=== PATIENT | female | born 1945 | race Caucasian/White ===

== ENCOUNTER → 2017-03-27 | Outpatient (CLI) | payer OTHER ==
--- NOTE | 2017-03-27 14:31 | RAD ---
Examination: Chest, PA and lateral views History: SOB Findings: Normal heart size and clear upper lungs. Minimal increase in linear density noted in the ba se these with blunting of the right costophrenic angle. Impression: Small right pleural effusion. Minimal basal atelectasis may be present. No evidence for p ulmonary edema or consolidation. Reported By:
== END ==
LOC: RAD 13:09
PROVIDERS: ATTEND Nurse Practitioner Family
DX: R06.02 Shortness of breath (principal); J90 Pleural effusion, not elsewhere classified
CPT/HCPCS: 71046

== ENCOUNTER → 2017-08-04 | Outpatient (CLI) | payer OTHER ==
[2017-08-04 09:03] LABS: BASOPHILS % (AUTO) 0.8 % (0.2-1.0); EOSINOPHILS # (AUTO) 0.1 x10^3/uL (0.0-0.2); EOSINOPHILS % (AUTO) 2.3 % (0.9-2.9); HEMATOCRIT 36.2 % (36.0-47.0); HEMOGLOBIN 12.2 g/dL (12.0-16.0); LYMPHOCYTES # (AUTO) 1.8 X10^3/uL (1.3-2.9); LYMPHOCYTES % (AUTO) 38.9 % (21.0-51.0); MEAN CORPUSCULAR HEMOGLOBIN 27.3 pg (27.0-34.0); MEAN CORPUSCULAR HGB CONC 33.8 g/dL (33.0-35.0); MEAN CORPUSCULAR VOLUME 80.8 fL (80.0-100.0); MEAN PLATELET VOLUME 8.7 fL (7.4-11.0); MONOCYTES # (AUTO) 0.3 x10^3/uL (0.3-0.8); MONOCYTES % (AUTO) 7.5 % (0.0-13.0); NEUTROPHILS # (AUTO) 2.3 x10^3/uL (2.2-4.8); NEUTROPHILS % (AUTO) 50.5 % (42.0-75.0); PLATELET COUNT 219 X10^3/uL (150.0-450.0); RED BLOOD COUNT 4.48 X10^6/uL (3.5-5.4); RED CELL DISTRIBUTION WIDTH 14.8 % (11.6-16.5); WHITE BLOOD COUNT 4.6 X10^3/uL (3.6-10.0)
[2017-08-04 09:28] LABS: ALANINE AMINOTRANSFERASE 17 Units/L (12-78); ALBUMIN 3.5 g/dL (3.4-5.0); ALKALINE PHOSPHATASE 63 Units/L (46-116); ASPARTATE AMINO TRANSFERASE 17 Units/L (15-37); BLOOD UREA NITROGEN 27 mg/dL (7-18); CALCIUM 7.9 mg/dL (8.5-10.1); CARBON DIOXIDE 26.4 mmol/L (21-32); CHLORIDE 103 mmol/L (98-107); CHOL/HDL RATIO 3.1 (0.0-5.0); CHOLESTEROL 261 mg/dL (0-200); FREE T4 (FREE THYROXINE) 1.51 ng/dL (0.76-1.46); HDL CHOLESTEROL 84 mg/dL (40-60); SODIUM 137 mmol/L (136-145); TOTAL PROTEIN 6.9 g/dL (6.4-8.2); TRIGLYCERIDES 66 mg/dL (0-150); TSH (3RD GENERATION) 0.246 uIU/mL (0.358-3.74); eGFR BLACK RACES > 60 (>60); eGFR NON BLACK RACES 52 (>60)
[2017-08-04 09:53] LABS: IRON 161 ug/dL (50-175); TOTAL IRON BINDING CAPACITY 364 ug/dL (250-450)
== END ==
LOC: LAB 08:18
PROVIDERS: ATTEND Nurse Practitioner Family
DX: E03.8 Other specified hypothyroidism (principal); E78.4 Other hyperlipidemia; E61.1 Iron deficiency; E56.8 Deficiency of other vitamins; I10 Essential (primary) hypertension; E55.9 Vitamin D deficiency, unspecified
CPT/HCPCS: 36415; 80053; 80061; 82306; 82728; 83540; 83550; 84439; 84443; 84481; 85025

== ENCOUNTER 2018-10-11 10:55 | Inpatient (IN) ==
[2018-10-11] MEDS ORDERED: BENADRYL INJ 50 MG VIAL IVP ONE (13:45)
[2018-10-11] MEDS ORDERED: COREG TAB 6.25 MG PO ONE (22:00)
[2018-10-11] MEDS ORDERED: VISTARIL PO ONE (22:00)
[2018-10-11 22:27] VITALS: BP 156/68
[2018-10-12] MEDS ORDERED: BENADRYL INJ 50 MG VIAL IVP PRN (05:55)
[2018-10-12] MEDS ORDERED: SYNTHROID 112 mcg TAB ONE (06:00)
[2018-10-12] MEDS ORDERED: NS 1000 ML 1,000 ML IV SCH (06:00)
[2018-10-12 06:11] LABS: BASOPHILS % (AUTO) 0.9 % (0.2-1.0); EOSINOPHILS # (AUTO) 0.1 x10^3/uL (0.0-0.2); EOSINOPHILS % (AUTO) 1.8 % (0.9-2.9); HEMATOCRIT 26.5 % (36.0-47.0); HEMOGLOBIN 9.1 g/dL (12.0-16.0); LYMPHOCYTES # (AUTO) 1.4 X10^3/uL (1.3-2.9); LYMPHOCYTES % (AUTO) 33.3 % (21.0-51.0); MEAN CORPUSCULAR HEMOGLOBIN 30.6 pg (27.0-34.0); MEAN CORPUSCULAR HGB CONC 34.3 g/dL (33.0-35.0); MEAN CORPUSCULAR VOLUME 89.2 fL (80.0-100.0); MEAN PLATELET VOLUME 7.6 fL (7.4-11.0); MONOCYTES # (AUTO) 0.3 x10^3/uL (0.3-0.8); MONOCYTES % (AUTO) 7.5 % (0.0-13.0); NEUTROPHILS # (AUTO) 2.3 x10^3/uL (2.2-4.8); NEUTROPHILS % (AUTO) 56.5 % (42.0-75.0); PLATELET COUNT 244 X10^3/uL (150.0-450.0); RED BLOOD COUNT 2.97 X10^6/uL (3.5-5.4); WHITE BLOOD COUNT 4.1 X10^3/uL (3.6-10.0)
[2018-10-12 06:17] LABS: ALANINE AMINOTRANSFERASE 13 Units/L (12-78); ALKALINE PHOSPHATASE 53 Units/L (46-116); ASPARTATE AMINO TRANSFERASE 18 Units/L (15-37); BLOOD UREA NITROGEN 31 mg/dL (7-18); CALCIUM 7.6 mg/dL (8.5-10.1); CARBON DIOXIDE 26.4 mmol/L (21-32); CHLORIDE 108 mmol/L (98-107); COR CA(FOR HYPOALB) 8.4 mg/dL (8.5-10.1); CREATININE 2.11 mg/dL (0.55-1.02); SODIUM 140 mmol/L (136-145); TOTAL PROTEIN 5.7 g/dL (6.4-8.2); eGFR NON BLACK RACES 24 (>60)
[2018-10-12] MEDS ORDERED: SYNTHROID 112 mcg TAB PO SCH (07:00)
[2018-10-12] MEDS ORDERED: VISTARIL PO PRN (07:32)
[2018-10-12] MEDS ORDERED: CORDARONE TAB 200 MG ONE (09:00)
[2018-10-12] MEDS ORDERED: COREG TAB 6.25 MG ONE (09:00)
[2018-10-12] MEDS ORDERED: COREG TAB 6.25 MG PO SCH (09:00)
[2018-10-12] MEDS ORDERED: CORDARONE TAB 200 MG PO SCH (09:00)
[2018-10-12] MEDS ORDERED: NS 100 ML IV 100 ML with VENOFER 200 MG IV NR ×2 (11:00)
[2018-10-12] MEDS ORDERED: VENOFER IV ONE (11:30)
== END 2018-10-12 12:30 | disposition home or self-care (01) | DRG 812 ==
LOC: MED/SURG 10:55 → OBS 10:56 → MED/SURG 10:57 → UNDODISIN 10-12 12:30 → OBS 10-16 09:12
PROVIDERS: ADMIT Obstetrics & Gynecology Obstetrics; ATTEND Obstetrics & Gynecology Obstetrics
DX: R53.83 Other fatigue; Z95.810 Presence of automatic (implantable) cardiac defibrillator; Z90.5 Acquired absence of kidney; E03.8 Other specified hypothyroidism; D64.89 Other specified anemias; R11.0 Nausea; I25.10 Atherosclerotic heart disease of native coronary artery without angina pectoris; I10 Essential (primary) hypertension; E78.2 Mixed hyperlipidemia; Z85.528 Personal history of other malignant neoplasm of kidney
CPT/HCPCS: 36415; 80053; 85025; 86850; 86900; 86901; 86922; A4222; P9016; Q0177; J1200; J1756

== ENCOUNTER 2018-10-30 14:51 | Inpatient (IN) ==
--- NOTE | 2018-10-30 15:24 | DR.SOBA ---
HPI Time Seen Time Seen by Provider: 10/30/18 15:22 Primary Care Physician Primary Care Physician: GEOVANNI ROCA Complaints Chief Complaint Doctors Comments: Pt presented for SOB. pt reports for the past 5 days having worsening SOB and GUTIERREZ and feeling fatigue. She has bld transfusion on 10/12 and was feeling better but now feeling weak again and dizz. Denies any CP, hematuria, melana. She had kidney CA and right nephrectomy. She is on Plavix and eliquis and reports brusing but denies any fall, fever or abdominal pain. Chief Complaint:: SHORTNESS OF BREATH. HX OF HAVING BLOOD TRANSFUSIONS. INCREASED WEAKNESS AND DIZZINESS. Self Treatment fo Chief Complaint: BEEN RECEIVING BLOOD TRANSFUSIONS Reviewed Nurses Notes Reviewed: Yes Source History Provided: Patient and Family Member Mode of Arrival Mode of Arrival: Wheelchair Timing Onset of Chief Complaint: 10/28/18 Duration Duration: Days Context Onset:: At Rest and With Light Exertion PE Risk Factors:: Recent Surgery; denies Immobilization History of:: CHF Currently on:: Neither Modifying Factors Worsens:: Exertion Improves:: Nothing Associated Signs and Symptoms Associated Signs and Symptoms: denies Wheeze, Chest Pain, Leg Swelling and Calf Pain If Chest Pain Quality: denies Pressure like If Cough Cough: None PMH PMH Past Medical History: Yes Past Medical History: Anemia, CHF, Dyslipidemia, Hypertension, Hypothyroidism, [place] and Renal Disease Past Surgical History: Yes Surgical History: Angioplasty/Stents, Hysterectomy and Joint Replacement Past Surgical History Comment: KIDNEY SURGERY WITH REMOVAL OF RIGHT KIDNEY Family History History of Family Medical Conditions: Yes Family Medical History: Diabetes Mellitus, Cancer, [place], Coronary Artery Disease, Heart Failure and Hypertension Social History Does patient currently use any type of tobacco product: No Have you used tobacco products in the last 12 months: No Does any household member use tobacco: No Alcohol Use: None Do you use any recreational Drugs:: No Lives With: Family Lives Where: Home infectious screening In the last 2 months have you had wt loss of >10#?: NO Have you had fever, night sweats or hemotysis?: No Have you traveled outside the country in the last 6 months?: No Isolation: Standard ROS Review of Systems Constitutional: Malaise, Weakness and Fatigue; negative Chills, Fever and Loss of Appetite Eyes: negative Blurred Vision ENTM: negative Nose Congestion Respiratoy: Short of Breath; negative Productive Cough Cardiovascular: negative Chest Pain and Edema Gastrointestinal/Abdominal: negative Abdominal Pain and Vomiting Genitourinary: negative Dysuria, Hematuria and Bleeding Neurological: negative Headache, Weakness and Speech Problem Musculoskeletal: negative Joint Swelling Integumentary: Bruises Hematologic/Lymphatic: Easy Bruising Endocrine: negative Unexplained Weight Loss Psychiatric: negative Depression All Other Systems: Reviewed and Negative PE Vital Signs Vitals: Temperature 98.7 F Pulse Rate [Apical] 60 Pulse Rate 62 Respiratory Rate 17 Blood Pressure [Left Arm] 142/65 Blood Pressure 99/54 O2 Sat by Pulse Oximetry 98 General Limitations: No Limitations General Appearance: Alert and In No Apparent Distress Head Head Exam: Normal Inspection and Normocephalic Eyes Eye exam: Normal Appearance, EOMI and Other (pale conjunctiva); negative Conjunctival Injection ENT ENT Exam: Normal Exam, Normal Oropharynx and Mucous Membranes Moist Neck Neck Exam: Normal Inspection and Full ROM; negative Lymphadenopathy Respiratory Respiratory Exam: Normal Lung Sounds Bilat Respiratory Exam: Bilateral: Clear to Auscultation Cardiovascular Cardiovascular Exam: Regular Rate, Normal Rhythm, Normal Heart Sounds and Other (left CW pacemaker) Abdominal Exam Abdominal Exam: Normal Inspection, Normal Bowel Sounds and Soft; negative Distention, Tenderness, Guarding and Dimnished Bowel Sounds Extremities Extremities Exam: Normal Inspection, Full ROM and Normal Capillary Refill; negative Tenderness and Edema Back Back Exam: Normal Inspection and Full ROM Neurologic Neurological Exam: Alert, Oriented X3 and Normal Gait; negative Motor Sensory Deficit Psychiatric Psychiatric Exam: Normal Affect and Normal Mood Skin Skin Exam: Warm, Dry, Intact and Pallor MDM Differential Diagnosis Differential Diagnosis: Anxiety, Bronchitis, CHF, Mycardial Infarction and Other Differential Diagnosis Comment:: anemia, gib COURSE Treatment Treatment: D/w pt results and and plan. Will admit Reevaluation 1st: Improved Consultation Consultation Comments: 08:[address] Acuña for admission. Will see in hospital. Advised to give 2 units PRBC now. Education/Counseling Education/Counseling: Patient, Education and Counseling Educated On: Treatment, Diagnosis, Prognosis and Needs for Follow Up (PCP) ROR Labs Reviewed Laboratory Results Reviewed?: Yes Result Diagrams: 10/30/18 15:31 10/30/18 16:50 Laboratory: WBC 4.5 X10^3/uL (3.6-10.0) 10/30/18 15:31 RBC 2.34 X10^6/uL (3.5-5.4) L 10/30/18: Hgb 7.2 g/dL (12.0-16.0) L 10/30/18: Hct 21.2 % (36.0-47.0) L 10/30/18: MCV 90.7 fL (80.0-100.0) 10/30/18: MCH 30.6 pg (27.0-34.0) 10/30/18: MCHC 33.8 g/dL (33.0-35.0) 10/30/18: RDW 17.1 % (11.6-16.5) H 10/30/18: Plt Count 243 X10^3/uL (150.0-450.0) 10/30/18: Plt Count Comment Adequate (ADEQUATE) 10/30/18: MPV 7.8 fL (7.4-11.0) 10/30/18: Neut % (Auto) 64.6 % (42.0-75.0) 10/30/18: Lymph % (Auto) 26.6 % (21.0-51.0) 10/30/18: Blair % (Auto) 6.7 % (0.0-13.0) 10/30/18 Eos % (Auto) 0.8 % (0.9-2.9) L 10/30/18 Baso % (Auto) 1.3 % (0.2-1.0) H 10/30/18: Neut # (Auto) 2.9 x10^3/uL (2.2-4.8) 10/30/18: Lymph # (Auto) 1.2 X10^3/uL (1.3-2.9) L 10/30/18: Blair # (Auto) 0.3 x10^3/uL (0.3-0.8) 10/30/18: Eos # (Auto) 0.0 x10^3/uL (0.0-0.2) 10/30/18: Baso # (Auto) 0.1 X10^3/uL (0.0-0.1) 08/13/19 15:31 Absolute Nucleated RBC 0.1 /100WBC 10/30/18 15:31 Plt Morphology Comment Normal (NORMAL) 10/30/18 15:31 RBC Morphology Abnormal (NORMAL) A 10/30/18 15:31 Poikilocytosis Slight A 10/30/18 15:31 INR Target Range - 10/30/18 15:31 INR 1.78 (0.8-1.3) H 10/30/18 15:31 Sodium 140 mmol/L (136-145) 10/30/18 16:50 Corrected Sodium TNP 10/30/18 16:50 Potassium 5.7 mmol/L (3.5-5.1) H 10/30/18 16:50 Chloride 106 mmol/L (98-107) 10/30/18 16:50 Carbon Dioxide 24.2 mmol/L (21-32) 10/30/18 16:50 BUN 47 mg/dL (7-18) H 10/30/18 16:50 Creatinine 2.21 mg/dL (0.55-1.02) H 10/30/18 16:50 Est GFR (MDRD) Af Amer 28 (>60) L 10/30/18 16:50 Est GFR (MDRD) Non-Af 23 (>60) L 10/30/18 16:50 Glucose 92 mg/dL (65-99) 10/30/18 16:50 Calcium 8.4 mg/dL (8.5-10.1) L 10/30/18 16:50 Troponin I 0.09 ng/mL (0-1.5) 10/30/18 15:31 Stool Description Fob tube 10/30/18 16:54 Stl Occult Blood (IFOB) Negative (NEGATIVE) 10/30/18 16:54 Blood Type O POSITIVE 10/30/18 16:50 Antibody Screen Negative 10/30/18 16:50 Other Results Comments: Hb 7.2 down form 9.1 10/24/18 K 5.8 Cr 2.30 XRAY XRAY Interpreted by: Radiologist XRAY Findings: NAF EKG Rate: 60 Rhythm: Paced (AV) Opioid Opioid Risk Tool Age (Janusz box if 16-45): No History of Preadolescent Sexual Abuse: No Total: 0 Total Score Risk Category: Low Risk Copyright: Palacios LR predicting aberrant behaviors Diagnosis Discharge Problem: Acute hyperkalemia Anemia Qualifiers: Anemia type: unspecified type Qualified Code(s): D64.9 - Anemia, unspecified CKD (chronic kidney disease) Qualifiers: Chronic kidney disease stage: unspecified stage Qualified Code(s): N18.9 - Chronic kidney disease, unspecified
[2018-10-30 15:40] LABS: BASOPHILS # (AUTO) 0.1 X10^3/uL (0.0-0.1); EOSINOPHILS % (AUTO) 0.8 % (0.9-2.9); LYMPHOCYTES # (AUTO) 1.2 X10^3/uL (1.3-2.9); MONOCYTES # (AUTO) 0.3 x10^3/uL (0.3-0.8); NEUTROPHILS % (AUTO) 64.6 % (42.0-75.0); RED CELL DISTRIBUTION WIDTH 17.1 % (11.6-16.5)
[2018-10-30 15:45] LABS: BASOPHILS % (AUTO) 1.3 % (0.2-1.0); HEMATOCRIT 21.2 % (36.0-47.0); LYMPHOCYTES % (AUTO) 26.6 % (21.0-51.0); MEAN CORPUSCULAR HEMOGLOBIN 30.6 pg (27.0-34.0); MEAN CORPUSCULAR HGB CONC 33.8 g/dL (33.0-35.0); MEAN CORPUSCULAR VOLUME 90.7 fL (80.0-100.0); MEAN PLATELET VOLUME 7.8 fL (7.4-11.0); MONOCYTES % (AUTO) 6.7 % (0.0-13.0); NEUTROPHILS # (AUTO) 2.9 x10^3/uL (2.2-4.8); PLATELET COUNT 243 X10^3/uL (150.0-450.0); RED BLOOD COUNT 2.34 X10^6/uL (3.5-5.4); WHITE BLOOD COUNT 4.5 X10^3/uL (3.6-10.0)
--- NOTE | 2018-10-30 15:48 | RAD ---
HISTORY: Shortness of breath Study: Single-view chest Comparison: 08/18/2018. Findings: Left-sided pacemaker/defibrillator is present with intact leads. Trachea is midline. Heart size is normal. There is atherosclerotic calcification of the aortic arch. Very mild hyperinflation of the lungs is seen without infiltrate, CHF, pleural fluid or pneumothorax. Osseous structures are intact. IMPRESSION: Mild hyperinflation of the lungs without infiltrate or CHF. Reported By:
[2018-10-30 15:52] LABS: HEMOGLOBIN 7.2 g/dL (12.0-16.0)
[2018-10-30 15:53] LABS: BLOOD UREA NITROGEN 47 mg/dL (7-18); CALCIUM 8.6 mg/dL (8.5-10.1); CARBON DIOXIDE 25.7 mmol/L (21-32); CHLORIDE 107 mmol/L (98-107); PLATELET MORPHOLOGY COMMENT NORMAL (NORMAL); POIKILOCYTOSIS SLIGHT; SODIUM 139 mmol/L (136-145); TROPONIN I 0.09 ng/mL (0-1.5); eGFR NON BLACK RACES 22 (>60)
[2018-10-30 17:09] LABS: BLOOD UREA NITROGEN 47 mg/dL (7-18); CALCIUM 8.4 mg/dL (8.5-10.1); CARBON DIOXIDE 24.2 mmol/L (21-32); CHLORIDE 106 mmol/L (98-107); CREATININE 2.21 mg/dL (0.55-1.02); SODIUM 140 mmol/L (136-145); eGFR NON BLACK RACES 23 (>60)
[2018-10-30] MEDS ORDERED: D50W ABBOJECT SYR IV ONE (18:04)
[2018-10-30] MEDS ORDERED: HumuLIN R IV ONE (18:05)
[2018-10-30] MEDS ORDERED: D50W ABBOJECT SYR ONE (18:23)
[2018-10-30] MEDS ORDERED: NS 1000 ML 1,000 ML IV SCH (19:00)
[2018-10-30] MEDS ORDERED: SNACK - Diabetic Appropriate PO SCH (20:00)
[2018-10-30] MEDS ORDERED: NS 500 ML IV 500 ML IV ONE (21:17)
[2018-10-30] MEDS ORDERED: ESTRACE PO SCH (21:17)
[2018-10-31 00:23] VITALS: BMI 25.0
[2018-10-31] MEDS: SYNTHROID 100 mcg TAB PO SCH ×2 (06:27→06:50)
[2018-10-31 08:58] LABS: BASOPHILS # (AUTO) 0.1 X10^3/uL (0.0-0.1); BASOPHILS % (AUTO) 2.7 % (0.2-1.0); EOSINOPHILS # (AUTO) 0.1 x10^3/uL (0.0-0.2); EOSINOPHILS % (AUTO) 1.7 % (0.9-2.9); HEMATOCRIT 28.9 % (36.0-47.0); LYMPHOCYTES # (AUTO) 1.1 X10^3/uL (1.3-2.9); LYMPHOCYTES % (AUTO) 26.4 % (21.0-51.0); MEAN CORPUSCULAR HEMOGLOBIN 31.2 pg (27.0-34.0); MEAN CORPUSCULAR HGB CONC 34.1 g/dL (33.0-35.0); MEAN CORPUSCULAR VOLUME 91.5 fL (80.0-100.0); MEAN PLATELET VOLUME 8.3 fL (7.4-11.0); MONOCYTES # (AUTO) 0.3 x10^3/uL (0.3-0.8); MONOCYTES % (AUTO) 6.8 % (0.0-13.0); NEUTROPHILS # (AUTO) 2.7 x10^3/uL (2.2-4.8); NEUTROPHILS % (AUTO) 62.4 % (42.0-75.0); PLATELET COUNT 205 X10^3/uL (150.0-450.0); RED BLOOD COUNT 3.16 X10^6/uL (3.5-5.4); RED CELL DISTRIBUTION WIDTH 15.7 % (11.6-16.5); WHITE BLOOD COUNT 4.3 X10^3/uL (3.6-10.0)
[2018-10-31] MEDS ORDERED: LIPITOR TAB 10 MG PO SCH (09:00)
[2018-10-31] MEDS ORDERED: HYDROCHLOROTHIAZIDE 12.5 MG CAP PO SCH (09:00)
[2018-10-31 09:01] LABS: HEMOGLOBIN 9.9 g/dL (12.0-16.0)
[2018-10-31 09:04] LABS: BLOOD UREA NITROGEN 42 mg/dL (7-18); CALCIUM 7.9 mg/dL (8.5-10.1); CARBON DIOXIDE 23.8 mmol/L (21-32); CHLORIDE 107 mmol/L (98-107); CREATININE 2.03 mg/dL (0.55-1.02); SODIUM 139 mmol/L (136-145); eGFR NON BLACK RACES 25 (>60)
[2018-10-31] MEDS ORDERED: ELIQUIS PO SCH (09:45)
[2018-10-31] MEDS ORDERED: PROCRIT or EPOGEN SC NR (09:46)
[2018-10-31] MEDS ORDERED: COREG TAB 6.25 MG PO SCH (10:00)
[2018-10-31] MEDS ORDERED: CORDARONE TAB 200 MG PO SCH (10:00)
[2018-10-31] MEDS ORDERED: NS 100 ML IV 100 ML with VENOFER 400 MG IV NR ×2 (10:00)
[2018-10-31] MEDS ORDERED: HEMOCYTE-PLUS PO SCH (10:00)
[2018-10-31] MEDS ORDERED: PLAVIX PO SCH (10:00)
[2018-10-31] MEDS ORDERED: NORVASC TAB 2.5 MG PO SCH (10:00)
[2018-10-31] MEDS ORDERED: NORVASC TAB 2.5 MG ONE (10:42)
[2018-10-31] MEDS: VITAMIN C PO SCH ×3 (10:49→14:29)
[2018-10-31] MEDS: SYNTHROID 112 mcg TAB PO SCH ×2 (10:50→10:57)
[2018-10-31 13:51] VITALS: BP 149/68
== END 2018-10-31 15:15 | disposition home or self-care (01) | DRG 812 ==
LOC: ER 14:51 → MED/SURG 21:13
PROVIDERS: ADMIT Internal Medicine; ATTEND Obstetrics & Gynecology Obstetrics
DX: Z79.01 Long term (current) use of anticoagulants; Z90.5 Acquired absence of kidney; R06.02 Shortness of breath; N18.9 Chronic kidney disease, unspecified; Z85.528 Personal history of other malignant neoplasm of kidney; D50.8 Other iron deficiency anemias; R94.31 Abnormal electrocardiogram [ECG] [EKG]; D63.1 Anemia in chronic kidney disease; E87.6 Hypokalemia
CPT/HCPCS: 36415; 36430; 71010; 71045; 80048; 82270; 84484; 85025; 85610; 86850; 86900; 86901; 86922; 93005; 96365; 96374; 96375; 99284; A4222; P9016; J0885; J1756; J3490; J7030; J7040; J7050

== ENCOUNTER 2018-11-10 15:16 | Inpatient (IN) ==
[2018-11-10 15:23] VITALS: BMI 25.0
--- NOTE | 2018-11-10 15:56 | DR.DIZZY ---
HPI Time seen Time Seen by Provider: 11/10/18 15:40 PCP Primary Care Physician: CHANELLE FREEMAN Complaint Chief Complaint Doctor Comments: A 73 y/o female presenting with c/o generalized weakness. She has a hx. of anemia and was transfused here less than 2 weeks ago. She will be seeing a Heme/oncologist (MD Delvis) in 2 days. She denies hematemesis or melena. Chief Complaint:: PT C/O THAT SHE IS WEAK , AND DEHYDRATED AND SHE NEEDS BLOOD , PT STATES SHE HAD BLOO A WEEK AGO, PT IS PALE, AND APPEARS TO BE WEAK,,BR Nurses Notes Reviewed Nurses Notes Review: Yes Source History Provided: Patient and Family Member Mode of Arrival Mode of Arrival: Wheelchair Timing Onset of Chief Complaint: 06/20/18 Duration How lon Duration: Days Location of Weakness Weakness Location: Generalized Context Onset: At rest and With light exertion Does pt take pot. toxic medication?: No History of: Anemia Stroke Symptoms: None; denies Ataxia, Aphasia, Acute confusion, Weakness of limb, Numbness of limbs, Slurring and Dizziness Modifying factors Worsens: Nothing Associated signs and symptoms Associated Signs and Symptoms: Normal PMH PMH Past Medical History: Yes Past Medical History: Anemia, CHF, Dyslipidemia, Hypertension, Hypothyroidism, [place] and Renal Disease Past Surgical History: Yes Surgical History: Ortho Surgery and Other Past Surgical History Comment: RIGHT KIDNEY REMOVED ,BR Family History History of Family Medical Conditions: Yes Family Medical History: Diabetes Mellitus, Cancer and [place] Social History Does patient currently use any type of tobacco product: No Have you used tobacco products in the last 12 months: No Does any household member use tobacco: No Alcohol Use: None Do you use any recreational Drugs:: No Lives With: Family Lives Where: Home infectious screening In the last 2 months have you had wt loss of >10#?: NO Have you had fever, night sweats or hemotysis?: No Have you traveled outside the country in the last 6 months?: No Isolation: Standard ROS Review of Systems Constitutional: Weakness Eyes: No Symptoms Reported ENTM: No Symptoms Reported Respiratoy: No Symptoms Reported Cardiovascular: No Symptoms Reported Gastrointestinal/Abdominal: No Symptoms Reported Genitourinary: No Symptoms Reported Neurological: No Symptoms Reported Musculoskeletal: No Symptoms Reported Integumentary: No Symptoms Reported Hematologic/Lymphatic: No Symptoms Reported Endocrine: No Symptoms Reported Psychiatric: No Symptoms Reported PE Vital Signs Vitals: Temperature 96.6 F Pulse Rate 60 Respiratory Rate 23 Blood Pressure [Left Arm] 149/68 Blood Pressure 119/57 O2 Sat by Pulse Oximetry 100 General Limitations: No Limitations General Appearance: Alert and In No Apparent Distress Head Head Exam: Normal Inspection, Atraumatic and Normocephalic Eyes Eye exam: Normal Appearance and EOMI ENT ENT Exam: Normal Exam, Normal Oropharynx, Mucous Membranes Moist and TM's Normal Bilaterally Neck Neck Exam: Normal Inspection, Full ROM and Trachea Midline Chest Chest Inspection: Normal Inspection and Symmetric Chest Wall Rise; negative Tenderness, Rash and Abscess Respiratory Respiratory Exam: Normal Lung Sounds Bilat; negative Accessory Muscle Use, Chest Wall Tenderness, Prolonged Expiratory Phase, Respiratory Distress and Stridor Cardiovascular Cardiovascular Exam: Regular Rate, Normal Rhythm, Normal Heart Sounds, +S1 and +S2 Abdominal Exam Abdominal Exam: Normal Inspection, Normal Bowel Sounds and Soft Rectal Rectal Exam: Deferred Extremeties Extremities Exam: Normal Inspection, Full ROM and Other; negative Tenderness, Normal Capillary Refill, Edema, Joint Swelling and Calf Tenderness Back Back Exam: Normal Inspection and Full ROM Neurologic Neurological Exam: Alert and Oriented X3 Psychiatric Psychiatric Exam: Normal Affect and Normal Mood Skin Skin Exam: Dry and Normal Color MDM Differential Diagnosis Differential Diagnosis: Anemia, Electrolyte disorder and Hypoglycemia COURSE Reevaluation 1st: Unchanged Education/Counseling Education/Counseling: Patient, Family, Education and Counseling Educated On: Treatment, Diagnosis, Prognosis and Needs for Follow Up ROR Labs Reviewed Laboratory Results Reviewed?: Yes Result Diagrams: 11/10/18 15:45 11/10/18 15:45 Laboratory: WBC 6.5 X10^3/uL (3.6-10.0) 11/10/18 15:45 RBC 2.04 X10^6/uL (3.5-5.4) L 11/10/18 15:45 Hgb 6.5 g/dL (12.0-16.0) L* 11/10/18 15:45 Hct 18.9 % (36.0-47.0) L* 11/10/18 15:45 MCV 92.7 fL (80.0-100.0) 11/10/18 15:45 MCH 31.8 pg (27.0-34.0) 11/10/18 15:45 MCHC 34.4 g/dL (33.0-35.0) 11/10/18 15:45 RDW 16.7 % (11.6-16.5) H 11/10/18 15:45 Plt Count 267 X10^3/uL (150.0-450.0) 11/10/18 15:45 MPV 7.7 fL (7.4-11.0) 11/10/18 15:45 Neut % (Auto) 80.5 % (42.0-75.0) H 11/10/18 15:45 Lymph % (Auto) 12.8 % (21.0-51.0) L 11/10/18 15:45 Dickenson % (Auto) 5.1 % (0.0-13.0) 11/10/18 15:45 Eos % (Auto) 0.8 % (0.9-2.9) L 11/10/18 15:45 Baso % (Auto) 0.8 % (0.2-1.0) 11/10/18 15:45 Neut # (Auto) 5.2 x10^3/uL (2.2-4.8) H 11/10/18 15:45 Lymph # (Auto) 0.8 X10^3/uL (1.3-2.9) L 11/10/18 15:45 Dickenson # (Auto) 0.3 x10^3/uL (0.3-0.8) 11/10/18 15:45 Eos # (Auto) 0.0 x10^3/uL (0.0-0.2) 11/10/18 15:45 Baso # (Auto) 0.1 X10^3/uL (0.0-0.1) 11/10/18 15:45 Absolute Nucleated RBC 0.1 /100WBC 11/10/18 15:45 Sodium 138 mmol/L (136-145) 11/10/18 15:45 Corrected Sodium 138 mmol/L (136-145) 11/10/18 15:45 Potassium 5.4 mmol/L (3.5-5.1) H 11/10/18 15:45 Chloride 106 mmol/L (98-107) 11/10/18 15:45 Carbon Dioxide 25.9 mmol/L (21-32) 11/10/18 15:45 BUN 55 mg/dL (7-18) H 11/10/18 15:45 Creatinine 2.58 mg/dL (0.55-1.02) H 11/10/18 15:45 Est GFR (MDRD) Af Amer 23 (>60) L 11/10/18 15:45 Est GFR (MDRD) Non-Af 19 (>60) L 11/10/18 15:45 Glucose 118 mg/dL (65-99) H 11/10/18 15:45 Calcium 7.8 mg/dL (8.5-10.1) L 11/10/18 15:45 Corrected Calcium 8.5 mg/dL (8.5-10.1) 11/10/18 15:45 Total Bilirubin 0.30 mg/dL (0.2-1.0) 11/10/18 15:45 AST 17 Units/L (15-37) 11/10/18 15:45 ALT 15 Units/L (12-78) 11/10/18 15:45 Alkaline Phosphatase 57 Units/L (46-116) 11/10/18 15:45 Total Protein 5.6 g/dL (6.4-8.2) L 11/10/18 15:45 Albumin 3.1 g/dL (3.4-5.0) L 11/10/18 15:45 Globulin 2.5 g/dL (2.5-4.5) 11/10/18 15:45 Albumin/Globulin Ratio 1.2 Ratio (1.1-2.1) 11/10/18 15:45 Vitamin B12 494 pg/mL (193-986) 11/10/18 15:45 TSH 3rd Generation 15.707 uIU/mL (0.358-3.74) H 11/10/18 15:45 Blood Type O POSITIVE 11/10/18 16:15 Antibody Screen Negative 11/10/18 16:15 Crossmatch See Detail 11/10/18 16:15 XRAY XRAY Interpreted by: Self XRAY Findings: CXR: no infiltrates or cardiomegaly, Defibrillator present in Lt. chest Opioid Opioid Risk Tool Age (Janusz box if 16-45): No History of Preadolescent Sexual Abuse: No Total: 0 Total Score Risk Category: Low Risk Copyright: Philip JOYNER predicting aberrant behaviors Diagnosis Discharge Problem: Acute hyperkalemia, Anemia, normocytic normochromic, CKD (chronic kidney disease) stage 4, GFR 15-29 ml/min CHF (congestive heart failure) Qualifiers: Heart failure type: unspecified Heart failure chronicity: chronic Qualified Code(s): I50.9 - Heart failure, unspecified A-fib Qualifiers: Atrial fibrillation type: paroxysmal Qualified Code(s): I48.0 - Paroxysmal atrial fibrillation Instructions Forms: Excuse From Work
[2018-11-10 15:58] LABS: BASOPHILS # (AUTO) 0.1 X10^3/uL (0.0-0.1); BASOPHILS % (AUTO) 0.8 % (0.2-1.0); EOSINOPHILS % (AUTO) 0.8 % (0.9-2.9); LYMPHOCYTES # (AUTO) 0.8 X10^3/uL (1.3-2.9); LYMPHOCYTES % (AUTO) 12.8 % (21.0-51.0); MEAN CORPUSCULAR HEMOGLOBIN 31.8 pg (27.0-34.0); MEAN CORPUSCULAR HGB CONC 34.4 g/dL (33.0-35.0); MEAN CORPUSCULAR VOLUME 92.7 fL (80.0-100.0); MEAN PLATELET VOLUME 7.7 fL (7.4-11.0); MONOCYTES # (AUTO) 0.3 x10^3/uL (0.3-0.8); MONOCYTES % (AUTO) 5.1 % (0.0-13.0); NEUTROPHILS # (AUTO) 5.2 x10^3/uL (2.2-4.8); NEUTROPHILS % (AUTO) 80.5 % (42.0-75.0); PLATELET COUNT 267 X10^3/uL (150.0-450.0); RED BLOOD COUNT 2.04 X10^6/uL (3.5-5.4); RED CELL DISTRIBUTION WIDTH 16.7 % (11.6-16.5); WHITE BLOOD COUNT 6.5 X10^3/uL (3.6-10.0)
[2018-11-10 16:01] LABS: HEMATOCRIT 18.9 % (36.0-47.0); HEMOGLOBIN 6.5 g/dL (12.0-16.0)
--- NOTE | 2018-11-10 16:05 | RAD ---
Examination: AP chest History: Weakness SOB Comparison 10/30/2018 Findings: Normal heart size with multi chamber AICD, essentially clear lungs and pleural spaces. There is no evidence for CHF or pneumonia. Impression: No interval change; no acute findings in the chest. Reported By:
[2018-11-10 16:17] LABS: ALBUMIN 3.1 g/dL (3.4-5.0); CALCIUM 7.8 mg/dL (8.5-10.1); CARBON DIOXIDE 25.9 mmol/L (21-32); COR CA(FOR HYPOALB) 8.5 mg/dL (8.5-10.1); CREATININE 2.58 mg/dL (0.55-1.02); TOTAL PROTEIN 5.6 g/dL (6.4-8.2); TSH (3RD GENERATION) 15.707 uIU/mL (0.358-3.74)
[2018-11-10] MEDS ORDERED: NS 250 ML IV 250 ML ONE (17:30)
[2018-11-10] MEDS ORDERED: KLONOPIN TAB 0.5 MG PO PRN (18:39)
[2018-11-10] MEDS: LIPITOR TAB 40 MG PO SCH ×2 (19:03→21:25)
[2018-11-10] MEDS: NORVASC TAB 2.5 MG PO SCH (19:03)
[2018-11-10] MEDS ORDERED: BENADRYL CAP/TAB 25 MG PO SCH (21:00)
[2018-11-10] MEDS: COREG TAB 6.25 MG PO SCH (21:24)
[2018-11-10] MEDS: VITAMIN C PO SCH (21:25)
[2018-11-10] MEDS: ELIQUIS PO SCH (21:25)
[2018-11-10] MEDS: FERROUS GLUCONATE PO SCH (21:25)
[2018-11-10] MEDS ORDERED: PATIENT'S HOME MEDICATION (Ferrous Sulfate [Ferrous Sulfate] 325 MG) PO SCH (22:00)
[2018-11-10] MEDS ORDERED: NS 500 ML IV 500 ML ONE (22:18)
[2018-11-11 03:22] LABS: BASOPHILS # (AUTO) 0.1 X10^3/uL (0.0-0.1); BASOPHILS % (AUTO) 1.1 % (0.2-1.0); EOSINOPHILS # (AUTO) 0.1 x10^3/uL (0.0-0.2); EOSINOPHILS % (AUTO) 1.5 % (0.9-2.9); HEMATOCRIT 24.7 % (36.0-47.0); LYMPHOCYTES # (AUTO) 1.5 X10^3/uL (1.3-2.9); LYMPHOCYTES % (AUTO) 30.9 % (21.0-51.0); MEAN CORPUSCULAR HEMOGLOBIN 31.6 pg (27.0-34.0); MEAN CORPUSCULAR HGB CONC 34.3 g/dL (33.0-35.0); MEAN CORPUSCULAR VOLUME 92.3 fL (80.0-100.0); MEAN PLATELET VOLUME 7.9 fL (7.4-11.0); MONOCYTES # (AUTO) 0.4 x10^3/uL (0.3-0.8); MONOCYTES % (AUTO) 7.3 % (0.0-13.0); NEUTROPHILS # (AUTO) 2.9 x10^3/uL (2.2-4.8); NEUTROPHILS % (AUTO) 59.2 % (42.0-75.0); PLATELET COUNT 195 X10^3/uL (150.0-450.0); RED BLOOD COUNT 2.68 X10^6/uL (3.5-5.4); RED CELL DISTRIBUTION WIDTH 15.4 % (11.6-16.5); WHITE BLOOD COUNT 4.8 X10^3/uL (3.6-10.0)
[2018-11-11 03:23] LABS: HEMOGLOBIN 8.5 g/dL (12.0-16.0)
[2018-11-11 03:29] LABS: ALANINE AMINOTRANSFERASE 12 Units/L (12-78); ALBUMIN 2.7 g/dL (3.4-5.0); ALKALINE PHOSPHATASE 51 Units/L (46-116); ASPARTATE AMINO TRANSFERASE 15 Units/L (15-37); BLOOD UREA NITROGEN 48 mg/dL (7-18); CALCIUM 7.4 mg/dL (8.5-10.1); CARBON DIOXIDE 28.2 mmol/L (21-32); CHLORIDE 108 mmol/L (98-107); COR CA(FOR HYPOALB) 8.4 mg/dL (8.5-10.1); CREATININE 2.35 mg/dL (0.55-1.02); SODIUM 140 mmol/L (136-145); TOTAL PROTEIN 4.9 g/dL (6.4-8.2); eGFR NON BLACK RACES 21 (>60)
[2018-11-11] MEDS: NS 1000 ML 1,000 ML IV SCH ×2 (03:29)
[2018-11-11] MEDS: FERROUS GLUCONATE PO SCH (06:56)
[2018-11-11] MEDS: VITAMIN C PO SCH (06:56)
[2018-11-11] MEDS ORDERED: SYNTHROID 125 mcg TAB ONE (07:06)
[2018-11-11] MEDS ORDERED: LEXAPRO ONE (08:02)
[2018-11-11] MEDS ORDERED: NORVASC TAB 2.5 MG ONE (08:02)
[2018-11-11] MEDS: ELIQUIS PO SCH (08:21)
[2018-11-11] MEDS: LIPITOR TAB 40 MG PO SCH (08:22)
[2018-11-11] MEDS: COREG TAB 6.25 MG PO SCH (08:22)
[2018-11-11] MEDS: NORVASC TAB 2.5 MG PO SCH (08:22)
[2018-11-11] MEDS ORDERED: LEXAPRO PO SCH (09:00)
[2018-11-11] MEDS ORDERED: PATIENT'S HOME MEDICATION (Escitalopram Oxalate [Escitalopram Oxalate] 5 MG) PO SCH (09:00)
[2018-11-11] MEDS ORDERED: PLAVIX PO SCH (09:00)
[2018-11-11 12:10] VITALS: BP 147/65
[2018-11-11 13:10] LABS: HEMATOCRIT 26.8 % (36.0-47.0); HEMOGLOBIN 9.3 g/dL (12.0-16.0)
--- NOTE | 2018-11-11 14:06 | DR.CARTERS ---
Short Stay Summary - Short Stay Summary for: Short Stay Summary for Date of:: 11/11/18 - Admission Date Date of Admission: 11/10/18 - Discharge Date Discharge Date: 11/11/18 - Admission Diagnoses (1) Anemia Status: Acute (2) CAD (coronary artery disease) Status: Acute (3) Hx of renal cell cancer Status: Acute (4) CHF (congestive heart failure) Status: Acute (5) SOB (shortness of breath) Status: Acute (6) CKD (chronic kidney disease) Status: Acute - Hospital Course Hospital Course: A 73 y/o female, ER admission after presenting with c/o generalized weakness. She has a hx. of anemia and was transfused here less than 2 weeks ago. She will be seeing a Heme/oncologist (MD Delvis) in 2 days. She denies hematemesis or melena. pt states she has hx of cad with stent placement in january 2018, then had pace maker/defibrillator combo placed in may 2018. pt had extensive cardiac workup in may of 2018 at [facility] prior to right nephrectomy due to renal cell carcinoma. pt has also been diagnosed with kidney disease and under the care of Dr oconnor, postbed stitcher. pt hgb on arrival 6.5, pt was transfused 2 units prbc without complications, repeat hgb stable. pt states she felt much improved, asking to be d/c home and follow up with her hem/onco tomorrow. pt was instructed to return to er if condition changes or worsens, bleeding precautions. see emr for labs and rad reports. - Discharge Medications Discharge Medications: Home Medication List diphenhydramine HCl [Benadryl] 50 mg PO HS 11/10/18 [History] escitalopram oxalate 5 mg PO DAILY 11/10/18 [History] Prescriptions: - Discharge Plan Disposition: HOME, SELF-CARE Condition: Stable - Follow up/Referrals Follow up/Referrals: MICHAEL ROCA [Primary Care Provider] - 3 days - Instructions Instructions: Anemia, Hyperkalemia, [id number], Chronic Kidney Disease, Adult, [id number], Heart Failure, [id number] Forms: Excuse From Work
[2018-11-11] MEDS ORDERED: SYNTHROID 125 mcg TAB PO SCH (16:30)
== END 2018-11-11 14:20 | disposition home or self-care (01) | DRG 812 ==
LOC: ER 15:29 → INTOOBSV 17:36 → OBSVTOIN 17:36 → ICU 17:36
PROVIDERS: ADMIT Internal Medicine; ATTEND Obstetrics & Gynecology Obstetrics
DX: Z95.0 Presence of cardiac pacemaker; I50.9 Heart failure, unspecified; I48.0 Paroxysmal atrial fibrillation; N18.4 Chronic kidney disease, stage 4 (severe); R06.02 Shortness of breath; Z85.528 Personal history of other malignant neoplasm of kidney; E87.5 Hyperkalemia; R53.1 Weakness; D64.9 Anemia, unspecified
CPT/HCPCS: 36415; 36430; 71010; 71045; 80053; 82607; 84443; 85014; 85018; 85025; 86850; 86900; 86901; 86922; 96365; 99285; A4222; P9016; J7030; J7040; J7050

== ENCOUNTER 2018-11-23 11:59 | Observation (INO) ==
[2018-11-23 12:06] VITALS: BMI 25.5
--- NOTE | 2018-11-23 12:30 | DR.GENAD ---
HPI - PCP Primary Care Physician: dr ward - HPI Comment HPI Comment: 73 y/o with cad s/p stents and recurrent drops in her hgb requiring 15 units of blood over the past four months in after another drop to 7.1 as below; she is weak and shaky but denies cp; she has sob intermittently and usually w/exertion; gi work up to date has been negative. - Complaint/Symptoms Chief Complaint:: pt stated dr dhaval nguyen t&c her for 2 units of blood, he called her this morning and told her to come to the er to get the blood cause her blood has dropped since last week. - Source History Provided: Patient - Mode of Arrival Mode of Arrival: Ambulatory - Timing Onset of Chief Complaint: 11/22/18 PMH - PMH Past Medical History: Yes Past Medical History: CA, Hypertension, Dyslipidemia, Renal Disease, Hypothyroidism, Anemia, CHF Past Surgical History: Yes Surgical History: Angioplasty/Stents, Hysterectomy, Other - Family History History of Family Medical Conditions: Yes Family Medical History: Cancer - Social History Does patient currently use any type of tobacco product: No Have you used tobacco products in the last 12 months: No Type of Tobacco Use: None Does any household member use tobacco: No Alcohol Use: None Do you use any recreational Drugs:: No Lives With: Family Lives Where: Home - infectious screening In the last 2 months have you had wt loss of >10#?: NO Have you had fever, night sweats or hemotysis?: No Have you traveled outside the country in the last 6 months?: No Isolation: Standard ROS - Review of Systems Constitutional: Malaise, Weakness, Fatigue Eyes: No Symptoms Reported ENTM: No Symptoms Reported Respiratoy: No Symptoms Reported Cardiovascular: No Symptoms Reported Gastrointestinal/Abdominal: No Symptoms Reported Genitourinary: No Symptoms Reported Neurological: See HPI, Weakness, Dizziness Musculoskeletal: No Symptoms Reported Integumentary: No Symptoms Reported Hematologic/Lymphatic: See HPI, Anemia Endocrine: No Symptoms Reported Psychiatric: No Symptoms Reported PE - General Limitations: No Limitations General Appearance: Alert, In No Apparent Distress - Head Head Exam: Normal Inspection - Eyes Eye exam: Normal Appearance, PERRL - ENT ENT Exam: Normal Exam - Neck Neck Exam: Normal Inspection, Full ROM - Chest Chest Inspection: Normal Inspection, Symmetric Chest Wall Rise - Respiratory Respiratory Exam: Normal Lung Sounds Bilat Respiratory Exam: Bilateral Clear to Auscultation - Cardiovascular Cardiovascular Exam: Regular Rate, Normal Rhythm - Abdominal Exam Abdominal Exam: Normal Inspection, Normal Bowel Sounds, Soft - Extremities Extremities Exam: Normal Inspection, Full ROM - Back Back Exam: Normal Inspection, Full ROM - Neurologic Neurological Exam: Alert, Oriented X3 - Psychiatric Psychiatric Exam: Normal Affect, Normal Mood - Skin Skin Exam: Warm, Dry, Intact, Pallor - Vital Signs Vitals: Pulse Rate 60 Respiratory Rate 16 Blood Pressure [Left Arm] 149/68 Blood Pressure 133/63 O2 Sat by Pulse Oximetry 100 Course - Consultation Consultation Comments: discussed admission w/Dr Boudreaux who accepts. - Education/Counseling Education/Counseling: Patient, Family ROR - Labs Reviewed Laboratory Results Reviewed?: Yes - Labs Reviewed Laboratory: 11/22:: hgb 7.1 w/hct 21 (Fabiana Vaughn) Opioid - Opioid Risk Tool Age (Janusz box if 16-45): No History of Preadolescent Sexual Abuse: No Total: 0 Total Score Risk Category: Low Risk - Diagnosis Discharge Problem: Symptomatic anemia - Discharge Plan Disposition: ADMITTED INPATIENT Condition: Stable
[2018-11-23] MEDS ORDERED: NS 500 ML IV 500 ML IV ONE (13:58)
[2018-11-23 16:42] LABS: BASOPHILS % (AUTO) 0.9 % (0.2-1.0); EOSINOPHILS # (AUTO) 0.1 x10^3/uL (0.0-0.2); EOSINOPHILS % (AUTO) 1.9 % (0.9-2.9); HEMATOCRIT 20.6 % (36.0-47.0); LYMPHOCYTES # (AUTO) 0.9 X10^3/uL (1.3-2.9); LYMPHOCYTES % (AUTO) 23.5 % (21.0-51.0); MEAN CORPUSCULAR HEMOGLOBIN 32.1 pg (27.0-34.0); MEAN CORPUSCULAR HGB CONC 33.8 g/dL (33.0-35.0); MEAN CORPUSCULAR VOLUME 94.9 fL (80.0-100.0); MEAN PLATELET VOLUME 7.6 fL (7.4-11.0); MONOCYTES # (AUTO) 0.3 x10^3/uL (0.3-0.8); MONOCYTES % (AUTO) 6.8 % (0.0-13.0); NEUTROPHILS # (AUTO) 2.6 x10^3/uL (2.2-4.8); NEUTROPHILS % (AUTO) 66.9 % (42.0-75.0); PLATELET COUNT 202 X10^3/uL (150.0-450.0); RED BLOOD COUNT 2.17 X10^6/uL (3.5-5.4); RED CELL DISTRIBUTION WIDTH 15.7 % (11.6-16.5)
[2018-11-23 16:52] LABS: ANISOCYTOSIS SLIGHT; PLATELET MORPHOLOGY COMMENT NORMAL (NORMAL)
[2018-11-23 16:55] LABS: ALANINE AMINOTRANSFERASE 18 Units/L (12-78); ALBUMIN 2.9 g/dL (3.4-5.0); ALKALINE PHOSPHATASE 58 Units/L (46-116); ASPARTATE AMINO TRANSFERASE 19 Units/L (15-37); BLOOD UREA NITROGEN 31 mg/dL (7-18); CALCIUM 8.1 mg/dL (8.5-10.1); CARBON DIOXIDE 23.5 mmol/L (21-32); CHLORIDE 107 mmol/L (98-107); COR NA(FOR HYPERGLY) 139 mmol/L (136-145); CREATININE 2.29 mg/dL (0.55-1.02); SODIUM 139 mmol/L (136-145); TOTAL PROTEIN 5.3 g/dL (6.4-8.2); eGFR NON BLACK RACES 22 (>60)
--- NOTE | 2018-11-23 17:04 | RAD ---
HISTORY: CHF anemia Study: Single-view of the chest Comparison: November 10, 2018 Findings: The trachea is midline. The cardiac silhouette is enlarged. The lungs are clear without focal infiltrate or effusion. The aortic knob is partially calcified. A left-sided cardiac pacemaker is demonstrated. IMPRESSION: 1. Cardiomegaly. Reported By:
[2018-11-23 17:24] LABS: IRON 72 ug/dL (50-175)
[2018-11-23] MEDS ORDERED: BENADRYL CAP 50 MG PO PRN (18:41)
[2018-11-23] MEDS: COREG TAB 6.25 MG PO SCH (20:33)
[2018-11-23] MEDS: ELIQUIS PO SCH (20:33)
[2018-11-23 22:55] LABS: HEMATOCRIT 24.1 % (36.0-47.0); HEMOGLOBIN 8.3 g/dL (12.0-16.0)
[2018-11-24] MEDS ORDERED: NS 500 ML IV 500 ML ONE (02:59)
[2018-11-24 07:40] LABS: BASOPHILS # (AUTO) 0.1 X10^3/uL (0.0-0.1); BASOPHILS % (AUTO) 1.2 % (0.2-1.0); EOSINOPHILS # (AUTO) 0.1 x10^3/uL (0.0-0.2); EOSINOPHILS % (AUTO) 1.7 % (0.9-2.9); HEMATOCRIT 27.5 % (36.0-47.0); HEMOGLOBIN 9.4 g/dL (12.0-16.0); LYMPHOCYTES # (AUTO) 1.1 X10^3/uL (1.3-2.9); LYMPHOCYTES % (AUTO) 23.7 % (21.0-51.0); MEAN CORPUSCULAR HEMOGLOBIN 31.3 pg (27.0-34.0); MEAN CORPUSCULAR HGB CONC 34.3 g/dL (33.0-35.0); MEAN CORPUSCULAR VOLUME 91.3 fL (80.0-100.0); MEAN PLATELET VOLUME 7.4 fL (7.4-11.0); MONOCYTES # (AUTO) 0.3 x10^3/uL (0.3-0.8); MONOCYTES % (AUTO) 7.4 % (0.0-13.0); PLATELET COUNT 212 X10^3/uL (150.0-450.0); RED BLOOD COUNT 3.01 X10^6/uL (3.5-5.4); RED CELL DISTRIBUTION WIDTH 16.1 % (11.6-16.5); WHITE BLOOD COUNT 4.6 X10^3/uL (3.6-10.0)
[2018-11-24 07:53] LABS: ALANINE AMINOTRANSFERASE 18 Units/L (12-78); ALBUMIN 2.9 g/dL (3.4-5.0); ALKALINE PHOSPHATASE 56 Units/L (46-116); ASPARTATE AMINO TRANSFERASE 20 Units/L (15-37); BLOOD UREA NITROGEN 31 mg/dL (7-18); CARBON DIOXIDE 24.1 mmol/L (21-32); CHLORIDE 108 mmol/L (98-107); COR CA(FOR HYPOALB) 8.9 mg/dL (8.5-10.1); CREATININE 1.97 mg/dL (0.55-1.02); SODIUM 139 mmol/L (136-145); TOTAL PROTEIN 5.4 g/dL (6.4-8.2); eGFR NON BLACK RACES 26 (>60)
[2018-11-24 08:46] VITALS: BP 160/70
[2018-11-24] MEDS: ELIQUIS PO SCH (09:29)
[2018-11-24] MEDS: COREG TAB 6.25 MG PO SCH (09:29)
[2018-11-24] MEDS ORDERED: PLAVIX PO SCH (10:00)
[2018-11-24] MEDS ORDERED: NORVASC TAB 2.5 MG PO SCH (10:00)
[2018-11-24] MEDS ORDERED: HEMOCYTE-PLUS PO SCH (10:00)
[2018-11-24] MEDS ORDERED: SYNTHROID 112 mcg TAB PO SCH (10:00)
[2018-11-24] MEDS ORDERED: CORDARONE TAB 200 MG PO SCH (10:00)
[2018-11-24] MEDS ORDERED: COREG TAB 6.25 MG PO SCH (10:00)
[2018-11-24] MEDS ORDERED: VITAMIN C PO SCH (10:00)
[2018-11-24] MEDS ORDERED: ELIQUIS PO SCH (21:00)
[2018-11-25] MEDS ORDERED: LEXAPRO PO PRN (09:00)
== END 2018-11-24 11:15 | disposition home or self-care (01) ==
LOC: MED/SURG 11:59 → ER 11:59 → MED/SURG 14:43
PROVIDERS: ADMIT Internal Medicine; ATTEND Obstetrics & Gynecology Obstetrics
DX: R53.1 Weakness; Z85.528 Personal history of other malignant neoplasm of kidney; E78.2 Mixed hyperlipidemia; R06.02 Shortness of breath; I48.91 Unspecified atrial fibrillation; E03.8 Other specified hypothyroidism; I10 Essential (primary) hypertension; R94.4 Abnormal results of kidney function studies; D50.8 Other iron deficiency anemias; Z79.01 Long term (current) use of anticoagulants
CPT/HCPCS: 36415; 36430; 71010; 71045; 80053; 82607; 82728; 82746; 83540; 84466; 85014; 85018; 85025; 86850; 86900; 86901; 86922; 96365; 99284; A4222; P9016; G0378; J7040

== ENCOUNTER 2019-06-01 12:51 | Observation (INO) ==
[2019-06-01 13:35] LABS: BILIRUBIN,URINE NEGATIVE (NEGATIVE); BLOOD/HEMOGLOBIN,URINE 1+ (NEGATIVE); GLUCOSE, URINE NEGATIVE (NEGATIVE); KETONES,URINE NEGATIVE (NEGATIVE); LEUKOCYTE ESTERASE ,URINE NEGATIVE (NEGATIVE); NITRITES,URINE NEGATIVE (NEGATIVE); PROTEIN,URINE 2+ (NEGATIVE); UROBILINOGEN,URINE NORMAL (NORMAL)
[2019-06-01 13:43] LABS: APPEARANCE,URINE CLEAR (CLEAR); BACTERIA,URINE TRACE /HPF (NEGATIVE); COLOR,URINE YELLOW (YELLOW); RBC,URINE 0-2 /HPF (0-3); SQUAMOUS EPITHELIAL CELL,UR FEW /HPF (NEGATIVE)
[2019-06-01 13:44] LABS: AMORPHOUS SEDIMENT,UR TRACE /HPF (NEGATIVE); MUCUS,URINE RARE /HPF (NEGATIVE)
--- NOTE | 2019-06-01 13:52 | DR.DIZZY ---
HPI - Time seen Time seen: 13:51 - PCP Primary Care Physician: CHANELLE FREEMAN - Complaint Chief Complaint Doctor Comments: Patient is complaining of being weak, no energy with decreased appetite for the past three days with diarrhea, nausea, vomiting. States she had diarrhea until she drank a bottle of Immodium last night. States she has a history or esphogeal bleed and required 19 units of blood over time. States she had surgry and she has not had anymore problems with the bleeding. states she had stents placed a few years ago. She denies chest pain but is complaining of SOB. She denies swelling of her hands or feet. She denies tobacco, alcohol or drug usage. She has had the flu shot and the pneumonia shot. States she has been having vomiting and diarrhea. Chief Complaint:: PT C/O WEAKNESS, AND N/V , DRY HEAVES PT STATES " I FELL LIKE I DID WHEN I WAS BLEEDING INTERNALLY AND I HAD TO GET 9 PINTS OF BLOOD " .BR Self Treatment fo Chief Complaint: PT APPEARS TO BE IN NO DISTRESS , SKIN W/D PINK, PT DENIES TARRY BLACK STOOLS , OR BLOOD IN EMESIS ..BR - Nurses Notes Reviewed Nurses Notes Review: Yes - Source History Provided: Patient - Mode of Arrival Mode of Arrival: Ambulatory - Timing Onset of Chief Complaint: 05/28/19 Came on: Gradually Symptom Onset: Unknown Onset of Symptoms Start Date: 05/29/19 - Duration Duration: Intermittent How lon Duration: Days - Location of Weakness Weakness Location: Generalized - Context Onset: At rest Does pt take pot. toxic medication?: No History of: Anemia Stroke Symptoms: None - Severity Severity: Normal activity level - Modifying factors Worsens: Nothing - Associated signs and symptoms Associated Signs and Symptoms: Imbalance, Weak PMH - PMH Past Medical History: Yes Past Medical History: [place], Hypertension, Dyslipidemia, Renal Disease, Hypoth yroidism, Anemia, CHF Past Surgical History: Yes Surgical History: Other - Family History History of Family Medical Conditions: Yes Family Medical History: [place], Hypertension - Social History Does patient currently use any type of tobacco product: No Have you used tobacco products in the last 12 months: No Type of Tobacco Use: None Does any household member use tobacco: No Alcohol Use: None Do you use any recreational Drugs:: No Lives With: Family Lives Where: Home - infectious screening In the last 2 months have you had wt loss of >10#?: NO Have you had fever, night sweats or hemotysis?: No Have you traveled outside the country in the last 6 months?: No Isolation: Standard ROS - Review of Systems Constitutional: No Symptoms Reported, Weakness, Loss of Appetite Eyes: No Symptoms Reported ENTM: No Symptoms Reported Respiratoy: No Symptoms Reported, Productive Cough, Short of Breath Cardiovascular: No Symptoms Reported. negative: See HPI, Chest Pain, Edema, Palpitations, Syncope, Cyanosis, Skin Mottling, Other Gastrointestinal/Abdominal: No Symptoms Reported, Diarrhea, Nausea, Vomiting. negative: See HPI, Abdominal Pain, Constipation, Food Intolerance, Other Genitourinary: No Symptoms Reported Neurological: No Symptoms Reported, Weakness Musculoskeletal: No Symptoms Reported Integumentary: No Symptoms Reported Hematologic/Lymphatic: No Symptoms Reported, Anemia Endocrine: No Symptoms Reported Psychiatric: No Symptoms Reported. negative: See HPI, Anxiety, Depression, Glez llucinations, Excessive crying, Suicidal, Other PE - General Limitations: No Limitations General Appearance: Alert, In Distress (slight) - Head Head Exam: Normal Inspection, Atraumatic, Normocephalic - Eyes Eye exam: Normal Appearance, PERRL, EOMI. negative: Scleral Icterus, Conjunctival Injection, Nystagmus, Miosis, Mydrasis, Periorbital Swelling, Periorbital Tenderness, Other Pupils: Regular, Round: Bilateral Sclera/Conjunctival: Normal Inspection: Bilateral Anterior Chamber: Normal Inspection: Bilateral Posterior Chamber: Deferred: Bilateral - ENT ENT Exam: Normal Exam, Normal Oropharynx, Normal External Ear Exam, Mucous Membranes Moist, TM's Normal Bilaterally - Neck Neck Exam: Normal Inspection, Full ROM, Trachea Midline - Chest Chest Inspection: Normal Inspection, Symmetric Chest Wall Rise - Respiratory Respiratory Exam: Normal Lung Sounds Bilat Respiratory Exam: Bilateral Clear to Auscultation - Cardiovascular Cardiovascular Exam: Regular Rate, Normal Rhythm, Normal Heart Sounds - Abdominal Exam Abdominal Exam: Normal Inspection, Normal Bowel Sounds, Soft. negative: Distention, Tenderness, Guarding, Rebound, Rigidity, Dimnished Bowel Sounds, Hy peractive Bowel Sounds, Hypoactive Bowel Sounds, Organomegaly, Trauma, Incision, Ascites, Mass, Bruit, Pulsatile Mass, Hernia, Other Abdominal Tenderness: negative: RUQ, RLQ, LUQ, LLQ, Epigastrium, Suprapubic, Diffuse, Mild, Moderate, Severe, Other - Rectal Rectal Exam: Deferred - Extremeties Extremities Exam: Normal Inspection, Full ROM, Tenderness (crepitus of the knees with pain on flexion; left knee with severe crepitus), Normal Capillary Refill. negative: Edema, Joint Swelling, Calf Tenderness, Other - Back Back Exam: Normal Inspection, Full ROM. negative: Tenderness, (R) CVA Tenderness, (L) CVA Tenderness, Muscle Spasm, Paraspinal Tenderness, Vertebral Tenderness, Rashes, (R) Sciatic Notch Tenderness, (L) Sciatic Notch Tendern, (R) Straight Leg Raise, (L) Straight Leg Raise, Other - Neurologic Neurological Exam: Alert, Oriented X3, CN II-XII Intact, Normal Gait, Reflexes Normal Patient Oriented To: Person, Place, Time Speech: Fluid Speech Cranial Nerve Exam: EOM Function (II, III, IV, ): Normal, Facial Sensation (V): Normal, Facial Palsy (VII): Normal, Gag reflex (XI): Normal, Spinal Accessory Function (XI): Normal, Tongue Deviation: Normal Motor Strength - LUE: 5/5 Motor Strength - RUE: 5/5 Motor Strength - LLE: 5/5 Motor Strength - RLE: 5/5 Upper Motor Neuron Exam: Babinski Sign: Normal Sensory Exam Upper Extremity: Light Touch: Normal Sensory Exam Lower Extremity: Light Touch: Normal DTR: bicep (L): 2+, bicep (R): 2+ - Psychiatric Psychiatric Exam: Normal Affect, Normal Mood. negative: Depressed, Agitated, Anxious, Flat Affect, Manic, Homicidal Ideation, Suicidal Ideation, Other - Skin Skin Exam: Warm, Dry, Intact, Normal Color, Pallor. negative: Rash, Cyanosis, Diaphoresis, Erythema, Mottled, Other - Vital Signs Vitals: Temperature 98.6 F Pulse Rate [Standing] 64 Pulse Rate [Sitting] 61 Pulse Rate [Lying] 60 Pulse Rate 71 Respiratory Rate 18 Blood Pressure [Right Arm] 141/74 Blood Pressure [Left Arm] 162/67 Blood Pressure [Standing] 168/72 Blood Pressure [Sitting] 188/81 Blood Pressure [Lying] 215/90 Blood Pressure 179/81 O2 Sat by Pulse Oximetry 94 Course - Reevaluation 1st: Improved - Consultation Called: 15:59 Call Returned: 15:59 (Dr. Roca to admit) - Education/Counseling Education/Counseling: Patient, Family Educated On: Treatment, Diagnosis, Needs for Follow Up ROR - Labs Reviewed Laboratory Results Reviewed?: Yes (All labs and x-ray results reviewed and discussed with patient and family) Result Diagrams: 06/01/19 14:36 06/01/19 14:36 - XRAY XRAY Interpreted by: Radiologist (CT abdomen and pelvis: Mild ilelus; bibasilar reticular nodular infiltrates posteriorly on right. Hepatosplenomegaly.) - EKG Rate: 60 Rhythm: Paced ST: Nonsp - Labs Reviewed Laboratory: WBC 4.0 X10^3/uL (3.6-10.0) 06/01/19 14:36 RBC 4.21 X10^6/uL (3.5-5.4) 06/01/19 14:36 Hgb 11.6 g/dL (12.0-16.0) L 06/01/19 14:36 Hct 35.0 % (36.0-47.0) L 06/01/19 14:36 MCV 83.1 fL (80.0-100.0) 06/01/19 14:36 MCH 27.7 pg (27.0-34.0) 06/01/19 14:36 MCHC 33.3 g/dL (33.0-35.0) 06/01/19 14:36 RDW 16.1 % (11.6-16.5) 06/01/19 14:36 Plt Count 167 X10^3/uL (150.0-450.0) 06/01/19 14:36 MPV 8.1 fL (7.4-11.0) 06/01/19 14:36 Neut % (Auto) 72.7 % (42.0-75.0) 06/01/19 14:36 Lymph % (Auto) 16.9 % (21.0-51.0) L 06/01/19 14:36 [place] % (Auto) 9.3 % (0.0-13.0) 06/01/19 14:36 Eos % (Auto) 0.5 % (0.9-2.9) L 06/01/19 14:36 Baso % (Auto) 0.6 % (0.2-1.0) 06/01/19 14:36 Neut # (Auto) 2.9 x10^3/uL (2.2-4.8) 06/01/19 14:36 Lymph # (Auto) 0.7 X10^3/uL (1.3-2.9) L 06/01/19 14:36 [place] # (Auto) 0.4 x10^3/uL (0.3-0.8) 06/01/19 14:36 Eos # (Auto) 0.0 x10^3/uL (0.0-0.2) 06/01/19 14:36 Baso # (Auto) 0.0 X10^3/uL (0.0-0.1) 06/01/19 14:36 Absolute Nucleated RBC 0.2 /100WBC 06/01/19 14:36 PT 13.6 SECONDS (11.8-14.3) 06/01/19 14:36 INR Target Range - 06/01/19 14:36 INR 1.08 (0.8-1.3) 06/01/19 14:36 APTT 31.0 SECONDS (22.9-36.5) 06/01/19 14:36 PTT Comment - 06/01/19 14:36 D-Dimer 801 ng/mL (0-400) H* 06/01/19 14:36 Sodium 136 mmol/L (136-145) 06/01/19 14:36 Corrected Sodium TNP 06/01/19 14:36 Potassium 3.9 mmol/L (3.5-5.1) 06/01/19 14:36 Chloride 101 mmol/L (98-107) 06/01/19 14:36 Carbon Dioxide 26.8 mmol/L (21-32) 06/01/19 14:36 BUN 26 mg/dL (7-18) H 06/01/19 14:36 Creatinine 1.92 mg/dL (0.55-1.02) H 06/01/19 14:36 Est GFR (MDRD) Af Amer 33 (>60) L 06/01/19 14:36 Est GFR (MDRD) Non-Af 27 (>60) L 06/01/19 14:36 Glucose 94 mg/dL (65-99) 06/01/19 14:36 Calcium 8.5 mg/dL (8.5-10.1) 06/01/19 14:36 Corrected Calcium 9.1 mg/dL (8.5-10.1) 06/01/19 14:36 Magnesium 2.0 mg/dL (1.7-2.9) 06/01/19 14:36 Total Bilirubin 0.50 mg/dL (0.2-1.0) 06/01/19 14:36 AST 24 Units/L (15-37) 06/01/19 14:36 ALT 19 Units/L (12-78) 06/01/19 14:36 Alkaline Phosphatase 73 Units/L (46-116) 06/01/19 14:36 Creatine Kinase 33 Units/L (26-192) 06/01/19 14:36 CK-MB (CK-2) < 1.0 ng/mL (0-4.0) 06/01/19 14:36 CK/CKMB % Calc 3.0 % (<4) 06/01/19 14:36 Troponin I 0.02 ng/mL (0-1.5) 06/01/19 14:36 Total Protein 7.0 g/dL (6.4-8.2) 06/01/19 14:36 Albumin 3.3 g/dL (3.4-5.0) L 06/01/19 14:36 Globulin 3.7 g/dL (2.5-4.5) 06/01/19 14:36 Albumin/Globulin Ratio 0.9 Ratio (1.1-2.1) L 06/01/19 14:36 Specimen Type Clean catch urine 06/01/19 13:22 Urine Color Yellow (YELLOW) 06/01/19 13:22 Urine Appearance Clear (CLEAR) 06/01/19 13:22 Urine pH 5.0 (5.0 - 8.0) 06/01/19 13:22 Ur Specific [place] 1.020 (1.000-1.030) 06/01/19 13:22 Urine Protein 2+ (NEGATIVE) 06/01/19 13:22 Urine Glucose (UA) Negative (NEGATIVE) 06/01/19 13:22 Urine Ketones Negative (NEGATIVE) 06/01/19 13:22 Urine Occult Blood 1+ (NEGATIVE) 06/01/19 13:22 Urine Nitrite Negative (NEGATIVE) 06/01/19 13:22 Urine Bilirubin Negative (NEGATIVE) 06/01/19 13:22 Urine Urobilinogen Normal (NORMAL) 06/01/19 13:22 Ur Leukocyte Esterase Negative (NEGATIVE) 06/01/19 13:22 Urine RBC 0-2 /HPF (0-3) 06/01/19 13:22 Urine WBC 0-2 /HPF (0-5) 06/01/19 13:22 Ur Squamous Epith Cells Few /HPF (NEGATIVE) 06/01/19 13:22 Amorphous Sediment Trace /HPF (NEGATIVE) 06/01/19 13:22 Urine Bacteria Trace /HPF (NEGATIVE) 06/01/19 13:22 Urine Mucus Rare /HPF (NEGATIVE) 06/01/19 13:22 Ur Culture Indicated? No/not indicated 06/01/19 13:22 - XRAY Xray Findings: CXR: No acute cardiopulmonary disease. (LACEY RIZZO) Opioid - Opioid Risk Tool Age (Janusz box if 16-45): No History of Preadolescent Sexual Abuse: No Total: 0 Total Score Risk Category: Low Risk - Diagnosis Discharge Problem: Dehydration, moderate, Weakness generalized, Chronic kidney disease (CKD), Ileus, unspecified, Lesion of right lung, Gastroenteritis - Discharge Plan Disposition: ADMITTED INPATIENT Condition: Stable - Follow ups/Referrals Follow ups/Referrals: MICHAEL ROCA [Primary Care Provider] - 3 days - Instructions
[2019-06-01] MEDS ORDERED: ZOFRAN INJ 4 MG VIAL IVP ONE (14:03)
[2019-06-01] MEDS ORDERED: ZOFRAN INJ 4 MG VIAL ONE (14:08)
[2019-06-01] MEDS ORDERED: NS 1000 ML 1,000 ML ONE (14:09)
[2019-06-01] MEDS: NS 1000 ML 1,000 ML IV SCH (14:35)
--- NOTE | 2019-06-01 14:36 | RAD ---
HISTORYchest painSTUDYCHEST, 1 VIEWCOMPARISONSeptember 2018FINDINGSThe trachea is midline. The cardiac silhouette is stable as is a left-sided pacing device. The lungs are clear without focal infiltrate or effusion. The bony thorax is unremarkable.IMPRESSIONNo acute cardiopulmonary disease.Electronically signed by: DIGNA ESPINOZA (Jun 01, 2019 14:34:28)
--- NOTE | 2019-06-01 14:41 | CT ---
HISTORYReason For StudySTUDYABDOMEN/PELVIS W/O CONCOMPARISONNoneTECHNIQUEMultiple axial images of the abdomen and pelvis were obtained from the lung bases to the pubic symphysis without the administration of IV contrast. Dose reduction techniques including Automated Exposure Control (AEC) and adjustment of mA and kV were utilized.FINDINGSThere are hazy reticular nodular and interstitial opacities scattered along the lung bases posteriorly and medially which is more prominent on the right. No effusion is seen. Liver is borderline enlarged. The gallbladder, pancreas, and bile ducts are normal. The spleen is borderline enlarged. There is mild thickening of the adrenal glands with no focal mass.The right kidney has been removed with surgical clips along the right renal fossa. The left kidney is unremarkable with no hydronephrosis, renal stone, mass. There are surgical clips scattered in the right lower quadrant. The colon is mildly dilated throughout with mild feces scattered in the right colon. There are small air-fluid levels scattered throughout the small bowel. There is no obvious bowel wall thickening. The mesentery is unremarkable.There is a right hip prosthesis in place which is causing streak artifact and partially obscuring the lower pelvis and bladder. There is minimal free fluid in the cul-de-sac which appears physiologic. The mesentery is unremarkable. No adenopathy is seen. The bones are intact. No aggressive osseous lesion is seen. There is moderate scoliosis. The appendix is not well visualized.IMPRESSIONQuestionable diffuse mild ileus which is predominately involving the colon, recommend clinical follow-up.Bibasilar reticular nodular infiltrates posteriorly which is more prominent on the right. This could represent early pneumonia vs old granulomatous disease and fibrotic scarring, recommend follow-up.Status post right nephrectomy otherwise, unremarkable left kidney with no urinary obstruction.Borderline hepatosplenomegaly.Questionable mild adrenal hyperplasia bilaterally. Recommend correlating with lab values.Right hip prosthesis which is partially obscuring the lower pelvis with minimal free fluid in the cul-de-sac which appears physiologic. No obvious pelvic mass or active inflammation can be seen in the visualized pelvis.Electronically signed by: VICKI ZHANG (Jun 01, 2019 14:40:15)
[2019-06-01 14:42] LABS: BASOPHILS % (AUTO) 0.6 % (0.2-1.0); EOSINOPHILS % (AUTO) 0.5 % (0.9-2.9); HEMOGLOBIN 11.6 g/dL (12.0-16.0); LYMPHOCYTES # (AUTO) 0.7 X10^3/uL (1.3-2.9); LYMPHOCYTES % (AUTO) 16.9 % (21.0-51.0); MEAN CORPUSCULAR HEMOGLOBIN 27.7 pg (27.0-34.0); MEAN CORPUSCULAR HGB CONC 33.3 g/dL (33.0-35.0); MEAN CORPUSCULAR VOLUME 83.1 fL (80.0-100.0); MEAN PLATELET VOLUME 8.1 fL (7.4-11.0); MONOCYTES # (AUTO) 0.4 x10^3/uL (0.3-0.8); MONOCYTES % (AUTO) 9.3 % (0.0-13.0); NEUTROPHILS # (AUTO) 2.9 x10^3/uL (2.2-4.8); NEUTROPHILS % (AUTO) 72.7 % (42.0-75.0); PLATELET COUNT 167 X10^3/uL (150.0-450.0); RED BLOOD COUNT 4.21 X10^6/uL (3.5-5.4); RED CELL DISTRIBUTION WIDTH 16.1 % (11.6-16.5)
[2019-06-01 15:00] LABS: BLOOD UREA NITROGEN 26 mg/dL (7-18); CALCIUM 8.5 mg/dL (8.5-10.1); CARBON DIOXIDE 26.8 mmol/L (21-32); CHLORIDE 101 mmol/L (98-107); CREATININE 1.92 mg/dL (0.55-1.02); SODIUM 136 mmol/L (136-145); TROPONIN I 0.02 ng/mL (0-1.5); eGFR NON BLACK RACES 27 (>60)
[2019-06-01 15:04] LABS: ALANINE AMINOTRANSFERASE 19 Units/L (12-78); ALBUMIN 3.3 g/dL (3.4-5.0); ALKALINE PHOSPHATASE 73 Units/L (46-116); ASPARTATE AMINO TRANSFERASE 24 Units/L (15-37); COR CA(FOR HYPOALB) 9.1 mg/dL (8.5-10.1); CREATINE KINASE 33 Units/L (26-192); CREATINE KINASE MB < 1.0 ng/mL (0-4.0)
[2019-06-01] MEDS ORDERED: ROCEPHIN VIAL 1 GRAM 1 G in NS 100 ML IV + SPIKE MINIBAG* 100 ML IV ONE (15:10)
[2019-06-01] MEDS ORDERED: ROCEPHIN VIAL 1 GRAM ONE (15:13)
[2019-06-01] MEDS ORDERED: NS 100 ML IV + SPIKE MINIBAG* 100 ML IV ONE (15:13)
[2019-06-01] MEDS ORDERED: PEPCID 20 MG IV PREMIX* 20 MG/50 ML BAG IV PRN (16:01)
[2019-06-01] MEDS ORDERED: ZOFRAN INJ 4 MG VIAL IVP PRN (16:01)
[2019-06-01] MEDS ORDERED: NORVASC TAB 2.5 MG ONE ×2 (16:42→16:48)
[2019-06-01] MEDS ORDERED: D5 1/2 NS + KCL 20 MEQ/L 1,000 ML IV ONE (16:42)
[2019-06-01] MEDS: D5 1/2 NS + KCL 20 MEQ/L 1,000 ML IV SCH (16:45)
[2019-06-01] MEDS: NORVASC TAB 2.5 MG PO SCH (16:45)
[2019-06-01] MEDS ORDERED: NORVASC TAB 2.5 MG PO SCH (17:00)
[2019-06-01 17:15] VITALS: BMI 25.9
[2019-06-01] MEDS: COREG TAB 6.25 MG PO SCH (21:00)
[2019-06-01] MEDS ORDERED: LIPITOR TAB 40 MG PO SCH (21:00)
[2019-06-02] MEDS: D5 1/2 NS + KCL 20 MEQ/L 1,000 ML IV SCH ×2 (02:00→09:49)
[2019-06-02] MEDS: NS 1000 ML 1,000 ML IV SCH (04:06)
[2019-06-02] MEDS ORDERED: CORDARONE TAB 200 MG PO SCH (09:00)
[2019-06-02] MEDS ORDERED: PLAVIX PO SCH (09:00)
[2019-06-02] MEDS ORDERED: NORVASC TAB 2.5 MG ONE (09:27)
[2019-06-02] MEDS: NORVASC TAB 2.5 MG PO SCH (09:48)
[2019-06-02] MEDS: COREG TAB 6.25 MG PO SCH (09:49)
[2019-06-02 12:05] VITALS: BP 157/69
[2019-06-02] MEDS ORDERED: SYNTHROID 112 mcg TAB PO SCH (16:30)
== END 2019-06-02 12:00 | disposition home or self-care (01) ==
LOC: ER 12:59 → MED/SURG 12:59
PROVIDERS: ADMIT Obstetrics & Gynecology Obstetrics; ATTEND Obstetrics & Gynecology Obstetrics
DX: I10 Essential (primary) hypertension; E78.2 Mixed hyperlipidemia; R94.31 Abnormal electrocardiogram [ECG] [EKG]; E03.8 Other specified hypothyroidism; E86.0 Dehydration; R06.02 Shortness of breath; K52.9 Noninfective gastroenteritis and colitis, unspecified
CPT/HCPCS: 36415; 71010; 71045; 74176; 80053; 81001; 82550; 82553; 83735; 84484; 85025; 85378; 85610; 85730; 93005; 96360; 96361; 96365; 96367; 96374; 96375; 99284; A4216; A4222; G0378; J0696; J2405; J7030; J7050

== ENCOUNTER 2021-01-02 12:13 | Inpatient (IN) ==
[2021-01-02 12:31] VITALS: BMI 31.3
--- NOTE | 2021-01-02 12:39 | DR.VAGB ---
HPI Time Seen Time Seen by Provider: 01/02/21 12:17 HPI Comment HPI Comment: She's had "thick, nasty smelling" vaginal bleeding intermittently x one day per daughter; had hysterectomy years ago and denies injury; she does have a landa present x one month since discharge from [facility] after un dergoing heart cath for stent placement Nov 26; something "went wrong" during cath and she has been unable to walk since; she has rt sided arm and leg weakness but denies being told she had a stroke; she drove herself to the hospital so this was an acute event; she's had "soft, mud pie-like" diarrhea since discharge for which pcp started probiotics which have helped a little per the daughter; no abd pain, nausea or vomiting; she is on plavix daughter has picture of thick looking red material on diaper from earlier today PMH PMH Past Medical History: Anemia, CHF, Dyslipidemia, Hypertension, Hypothyroidism, NC and Renal Disease Past Surgical History: Yes Surgical History: Angioplasty/Stents, Hysterectomy, Joint Replacement and Other (defibrillator) Family History Family Medical History: NC and Hypertension Social History Do you use any recreational Drugs:: No ROS Review of Systems Constitutional: Malaise, Weakness, Fatigue and Loss of Appetite Eyes: No Symptoms Reported ENTM: No Symptoms Reported Respiratoy: No Symptoms Reported Cardiovascular: No Symptoms Reported Gastrointestinal/Abdominal: See HPI and Diarrhea Genitourinary: See HPI Neurological: No Symptoms Reported Musculoskeletal: See HPI Hematologic/Lymphatic: Easy Bruising Endocrine: No Symptoms Reported Psychiatric: No Symptoms Reported PE Vital Signs Vitals: Temperature 97.7 F Pulse Rate 61 Respiratory Rate 20 Blood Pressure [Right Arm] 161/75 Blood Pressure [Left Arm] 181/80 Blood Pressure [Standing] 168/72 Blood Pressure [Sitting] 188/81 Blood Pressure [Lying] 215/90 Blood Pressure 103/52 O2 Sat by Pulse Oximetry 100 General Limitations: No Limitations General Appearance: Alert and In No Apparent Distress Head Head Exam: Normal Inspection Eyes Eye exam: Normal Appearance ENT ENT Exam: Normal Exam Neck Neck Exam: Normal Inspection Chest Chest Inspection: Normal Inspection Respiratory Respiratory Exam: Normal Lung Sounds Bilat Respiratory Exam: Bilateral: Clear to Auscultation Cardiovascular Cardiovascular Exam: Regular Rate and Normal Rhythm Abdominal Exam Abdominal Exam: Normal Inspection, Normal Bowel Sounds and Soft Genitourinary External Exam: Female: Other (no evidence of blood on vaginal swab) Extremities Extremities Exam: Normal Inspection Back Back Exam: Normal Inspection Neurologic Neurological Exam: Alert, Oriented X3 and Other (1-2+/5 rue, 2-3+/5 rle) Skin Skin Exam: Warm, Dry, Intact, Normal Color and Other (scattered bruising lower abd, upper thighs) COURSE Treatment Treatment: review of records at [facility] shows retroperitoneal bleed s/p rt femoral cath; surgically repaired; current bleed is from rectum; admit to hydrate, bring sodium up and find source of bleeding. Reevaluation 2nd: Unchanged Consultation Call Returned: 15:50 (Dr Boudreaux on site to evaluate pt; accepts admission) ROR Labs Reviewed Laboratory Results Reviewed?: Yes Result Diagrams: 01/02/21 12:34 01/02/21 12:34 Laboratory: WBC 16.8 X10^3/uL (3.6-10.0) H 01/02/21 12:34 RBC 4.10 X10^6/uL (3.5-5.4) 01/02/21 12:34 Hgb 10.7 g/dL (12.0-16.0) L 01/02/21 12:34 Hct 32.9 % (36.0-47.0) L 01/02/21 12:34 MCV 80.2 fL (80.0-100.0) 01/02/21 12:34 MCH 26.1 pg (27.0-34.0) L 01/02/21 12:34 MCHC 32.5 g/dL (33.0-35.0) L 01/02/21 12:34 RDW 16.8 % (11.6-16.5) H 01/02/21 12:34 Plt Count 158 X10^3/uL (150.0-450.0) 01/02/21 12:34 Plt Count Comment Adequate (ADEQUATE) 01/02/21 12:34 MPV 8.6 fL (7.4-11.0) 01/02/21 12:34 Neut % (Auto) 81.1 % (42.0-75.0) H 01/02/21 12:34 Lymph % (Auto) 12.2 % (21.0-51.0) L 01/02/21 12:34 [place] % (Auto) 4.7 % (0.0-13.0) 01/02/21 12:34 Eos % (Auto) 1.7 % (0.9-2.9) 01/02/21 12:34 Baso % (Auto) 0.3 % (0.2-1.0) 01/02/21 12:34 Neut # (Auto) 13.6 x10^3/uL (2.2-4.8) H 01/02/21 12:34 Lymph # (Auto) 2.1 X10^3/uL (1.3-2.9) 01/02/21 12:34 [place] # (Auto) 0.8 x10^3/uL (0.3-0.8) 01/02/21 12:34 Eos # (Auto) 0.3 x10^3/uL (0.0-0.2) H 01/02/21 12:34 Baso # (Auto) 0.1 X10^3/uL (0.0-0.1) 01/02/21 12:34 Absolute Nucleated RBC 0.0 /100WBC 01/02/21 12:34 Total Counted 100 01/02/21 12:34 Neutrophils % (Manual) 72 % (39-76) 01/02/21 12:34 Band Neutrophils % 11 % (0-10) H 01/02/21 12:34 Lymphocytes % (Manual) 13 % (13-43) 01/02/21 12:34 Monocytes % (Manual) 4 % (4-9) 01/02/21 12:34 Smudge Cells Few 01/02/21 12:34 Plt Clumps, EDTA Rare 01/02/21 12:34 Plt Morphology Comment Normal (NORMAL) 01/02/21 12:34 RBC Morphology Abnormal (NORMAL) A 01/02/21 12:34 Poikilocytosis Slight A 01/02/21 12:34 Anisocytosis Slight A 01/02/21 12:34 Ovalocytes Present 01/02/21 12:34 Acanthocytes (Spur) Present 01/02/21 12:34 Sodium 129 mmol/L (136-145) L 01/02/21 12:34 Corrected Sodium TNP 01/02/21 12:34 Potassium 3.8 mmol/L (3.5-5.1) 01/02/21 12:34 Chloride 95 mmol/L (98-107) L 01/02/21 12:34 Carbon Dioxide 28.1 mmol/L (21-32) 01/02/21 12:34 BUN 19 mg/dL (7-18) H 01/02/21 12:34 Creatinine 1.59 mg/dL (0.55-1.02) H 01/02/21 12:34 Est GFR (MDRD) Af Amer 41 (>60) L 01/02/21 12:34 Est GFR (MDRD) Non-Af 34 (>60) L 01/02/21 12:34 Glucose 108 mg/dL (65-99) H 01/02/21 12:34 Calcium 7.0 mg/dL (8.5-10.1) L 01/02/21 12:34 Corrected Calcium 9.1 mg/dL (8.5-10.1) 01/02/21 12:34 Total Bilirubin 0.40 mg/dL (0.2-1.0) 01/02/21 12:34 AST 27 Units/L (15-37) 01/02/21 12:34 ALT 9 Units/L (12-78) L 01/02/21 12:34 Alkaline Phosphatase 99 Units/L (46-116) 01/02/21 12:34 Total Protein 4.9 g/dL (6.4-8.2) L 01/02/21 12:34 Albumin 1.4 g/dL (3.4-5.0) L 01/02/21 12:34 Globulin 3.5 g/dL (2.5-4.5) 01/02/21 12:34 Albumin/Globulin Ratio 0.4 Ratio (1.1-2.1) L 01/02/21 12:34 Specimen Type Catherized urine 01/02/21 12:39 Urine Color Yellow (YELLOW) 01/02/21 12:39 Urine Appearance Slightly hazy (CLEAR) 01/02/21 12:39 Urine pH 6.5 (5.0 - 8.0) 01/02/21 12:39 Ur Specific [place] 1.015 (1.000-1.030) 01/02/21 12:39 Urine Protein 2+ (NEGATIVE) 01/02/21 12:39 Urine Glucose (UA) Negative (NEGATIVE) 01/02/21 12:39 Urine Ketones Negative (NEGATIVE) 01/02/21 12:39 Urine Occult Blood 2+ (NEGATIVE) 01/02/21 12:39 Urine Nitrite Negative (NEGATIVE) 01/02/21 12:39 Urine Bilirubin Negative (NEGATIVE) 01/02/21 12:39 Urine Urobilinogen Normal (NORMAL) 01/02/21 12:39 Ur Leukocyte Esterase 2+ (NEGATIVE) 01/02/21 12:39 Urine RBC 3-5 /HPF (0-3) A 01/02/21 12:39 Urine WBC 5-10 /HPF (0-5) A 01/02/21 12:39 Ur Squamous Epith Cells Few /HPF (NEGATIVE) 01/02/21 12:39 Urine Bacteria Trace /HPF (NEGATIVE) 01/02/21 12:39 Urine Yeast Many /HPF (NEGATIVE) 01/02/21 12:39 Ur Culture Indicated? Yes/culture set up 01/02/21 12:39 Stool Description <2 gms liquid brown 01/02/21 12:39 Stl Occult Blood (IFOB) Positive (NEGATIVE) A 01/02/21 12:39 SARS-CoV-2 (PCR) Negative (NEGATIVE) 01/02/21 13:35 Influenza Type A (PCR) Negative (NEGATIVE) 01/02/21 13:35 Influenza Type B (PCR) Negative (NEGATIVE) 01/02/21 13:35 RSV (PCR) Negative (NEGATIVE) 01/02/21 13:35 XRAY XRAY Interpreted by: Radiologist X-ray Results: ct abd/pelvis: 1. Status post hysterectomy. Imaging of the pelvic structures is otherwise limited by beam hardening artifact from the right hip prosthesis. 2. Mild wall thickening of the cecum and ascending colon could represent infectious or inflammatory colitis. Findings could represent infectious or inflammatory colitis. ct brain: No acute intracranial abnormality identified. Opioid Opioid Risk Tool Age (Janusz box if 16-45): No History of Preadolescent Sexual Abuse: No Total: 0 Total Score Risk Category: Low Risk Copyright: Philip JOYNER predicting aberrant behaviors Diagnosis Discharge Problem: Bloody diarrhea, Acute hyponatremia, Acute right-sided weakness, Unable to ambulate, Acute GI bleeding Anemia Qualifiers: Anemia type: unspecified type Qualified Code(s): D64.9 - Anemia, unspecified Instructions Forms: Precautions for COVID19 [facility] Social Distancing
[2021-01-02 12:48] LABS: BASOPHILS # (AUTO) 0.1 X10^3/uL (0.0-0.1); EOSINOPHILS # (AUTO) 0.3 x10^3/uL (0.0-0.2); EOSINOPHILS % (AUTO) 1.7 % (0.9-2.9); PLATELET COUNT 158 X10^3/uL (150.0-450.0)
[2021-01-02 12:55] LABS: BASOPHILS % (AUTO) 0.3 % (0.2-1.0); HEMATOCRIT 32.9 % (36.0-47.0); HEMOGLOBIN 10.7 g/dL (12.0-16.0); LYMPHOCYTES # (AUTO) 2.1 X10^3/uL (1.3-2.9); LYMPHOCYTES % (AUTO) 12.2 % (21.0-51.0); MEAN CORPUSCULAR HEMOGLOBIN 26.1 pg (27.0-34.0); MEAN CORPUSCULAR HGB CONC 32.5 g/dL (33.0-35.0); MEAN CORPUSCULAR VOLUME 80.2 fL (80.0-100.0); MEAN PLATELET VOLUME 8.6 fL (7.4-11.0); MONOCYTES # (AUTO) 0.8 x10^3/uL (0.3-0.8); MONOCYTES % (AUTO) 4.7 % (0.0-13.0); NEUTROPHILS # (AUTO) 13.6 x10^3/uL (2.2-4.8); NEUTROPHILS % (AUTO) 81.1 % (42.0-75.0); RED CELL DISTRIBUTION WIDTH 16.8 % (11.6-16.5); WHITE BLOOD COUNT 16.8 X10^3/uL (3.6-10.0)
[2021-01-02 12:57] LABS: ALANINE AMINOTRANSFERASE 9 Units/L (12-78); ALBUMIN 1.4 g/dL (3.4-5.0); ALKALINE PHOSPHATASE 99 Units/L (46-116); ASPARTATE AMINO TRANSFERASE 27 Units/L (15-37); BLOOD UREA NITROGEN 19 mg/dL (7-18); CARBON DIOXIDE 28.1 mmol/L (21-32); CHLORIDE 95 mmol/L (98-107); COR CA(FOR HYPOALB) 9.1 mg/dL (8.5-10.1); CREATININE 1.59 mg/dL (0.55-1.02); SODIUM 129 mmol/L (136-145); TOTAL PROTEIN 4.9 g/dL (6.4-8.2); eGFR NON BLACK RACES 34 (>60)
[2021-01-02 13:01] LABS: BILIRUBIN,URINE NEGATIVE (NEGATIVE); BLOOD/HEMOGLOBIN,URINE 2+ (NEGATIVE); GLUCOSE, URINE NEGATIVE (NEGATIVE); KETONES,URINE NEGATIVE (NEGATIVE); LEUKOCYTE ESTERASE ,URINE 2+ (NEGATIVE); NITRITES,URINE NEGATIVE (NEGATIVE); PH,URINE 6.5 (5.0 - 8.0); PROTEIN,URINE 2+ (NEGATIVE); UROBILINOGEN,URINE NORMAL (NORMAL)
[2021-01-02 13:09] LABS: ANISOCYTOSIS SLIGHT; PLATELET MORPHOLOGY COMMENT NORMAL (NORMAL); POIKILOCYTOSIS SLIGHT
[2021-01-02 13:10] LABS: BAND NEUTROPHILS % 11 % (0-10); OVALOCYTES PRESENT; SMUDGE CELLS FEW
[2021-01-02 13:14] LABS: APPEARANCE,URINE SLIGHTLY HAZY (CLEAR); BACTERIA,URINE TRACE /HPF (NEGATIVE); COLOR,URINE YELLOW (YELLOW); SQUAMOUS EPITHELIAL CELL,UR FEW /HPF (NEGATIVE); YEAST,URINE MANY /HPF (NEGATIVE)
[2021-01-02] MEDS ORDERED: NS 1000 ML 1,000 ML ONE (13:22)
[2021-01-02] MEDS ORDERED: NS 1000 ML 1,000 ML IV SCH (14:00)
--- NOTE | 2021-01-02 15:15 | CT ---
HISTORYRIGHT SIDED WEAKNESSSTUDYBRAIN W/O CONCOMPARISONNone available.TECHNIQUEAxial non-contrast images of the head were obtained with coronal and sagittal reformats provided.Radiation dose: 1117.00 mGy-cm total DLPFINDINGSNo abnormal areas of acute attenuation in the brain parenchyma.[place]-white differentiation remains intact.No intracranial, extra-axial, fluid collection.No hemorrhage.Periventricular chronic microvascular disease.No mass, mass effect or midline shift.Age related brain parenchymal global atrophy.No ventriculomegaly.No acute fracture.Sinuses are well aerated.Mastoid air cells are well aerated.Globes and intra-orbital contents are unremarkable.IMPRESSIONNo acute intracranial abnormality identified.Electronically signed by: Jean Paul Becerra (Jan 02, 2021 15:13:30)
--- NOTE | 2021-01-02 15:33 | CT ---
HISTORYVAGINAL BLEEDING S/P HYSTERECTOMYSTUDYABDOMEN/PELVIS W/O CONCOMPARISONMarch 2019TECHNIQUENon-contrasted axial CT images of the abdomen and pelvis were obtained and reformatted into coronal and sagittal planes for further evaluation. Enteric contrast was administered.Radiation dose: 986.20 mGy-cm total DLPFINDINGSSmall right and trace left pleural effusions with adjacent atelectasis.Pacemaker wires place.Stomach appears normal.Solid visceral organs of the upper abdomen are unremarkable.Gallbladder appears normal.No intra or extrahepatic biliary dilatation.Status post right nephrectomy.Left kidney and ureter are unremarkable.Urinary bladder is decompressed with a Shin catheter in place.Mild colonic wall thickening involving the cecum and ascending colon.Remainder of the colon and small bowel are unremarkable in appearance.Status post hysterectomy.Imaging of the pelvic structures is otherwise limited by beam hardening artifact from the right hip prosthesis.Soft tissue fullness in the right lower quadrant, adjacent to surgical nicho, may represent the right ovary.No evidence of acute appendicitis.No pneumoperitoneum.No significant fluid collection.No adenopathy.No acute osseous abnormality.[id number] degenerative disc disease in the lumbar spine.Vertebral body heights are maintained.Right hip prosthesis in place.Mild to moderate facet degenerative changes from L2-S1.IMPRESSION1. Status post hysterectomy. Imaging of the pelvic structures is otherwise limited by beam hardening artifact from the right hip prosthesis.2. Mild wall thickening of the cecum and ascending colon could represent infectious or inflammatory colitis. Findings could represent infectious or inflammatory colitis.Electronically signed by: Jean Paul Becerra (Jan 02, 2021 15:30:26)
[2021-01-02] MEDS ORDERED: NYSTATIN POWDER ONE (16:36)
[2021-01-02 18:49] LABS: HEMATOCRIT 31.7 % (36.0-47.0); HEMOGLOBIN 10.5 g/dL (12.0-16.0)
[2021-01-02] MEDS: NYSTATIN POWDER TOP SCH (20:10)
[2021-01-02] MEDS: VANCOMYCIN HCL 250 MG CAP PO SCH (21:05)
[2021-01-02] MEDS: FLAGYL TAB 500 MG PO SCH (21:05)
[2021-01-02] MEDS: LIPITOR TAB 40 MG PO SCH (21:05)
[2021-01-02] MEDS: INVANZ INJ 1 GM VIAL 1 GM in NS 100 ML IV + SPIKE MINIBAG* 100 ML IV SCH (21:05)
[2021-01-02] MEDS: NexIUM PO SCH (21:05)
[2021-01-02] MEDS: COREG TAB 6.25 MG PO SCH (21:05)
[2021-01-02] MEDS: SINEquan PO SCH (21:44)
[2021-01-03] MEDS: VANCOMYCIN HCL 250 MG CAP PO SCH ×4 (03:39→20:41)
[2021-01-03] MEDS: FLAGYL TAB 500 MG PO SCH ×3 (06:02→21:37)
[2021-01-03] MEDS: SYNTHROID 112 mcg TAB PO SCH (06:02)
[2021-01-03] MEDS ORDERED: ZOFRAN INJ 4 MG VIAL ONE (06:07)
[2021-01-03 06:12] LABS: BASOPHILS # (AUTO) 0.1 X10^3/uL (0.0-0.1); BASOPHILS % (AUTO) 0.4 % (0.2-1.0); EOSINOPHILS # (AUTO) 0.4 x10^3/uL (0.0-0.2); HEMATOCRIT 28.2 % (36.0-47.0); HEMOGLOBIN 9.5 g/dL (12.0-16.0); LYMPHOCYTES # (AUTO) 1.6 X10^3/uL (1.3-2.9); LYMPHOCYTES % (AUTO) 11.6 % (21.0-51.0); MEAN CORPUSCULAR HEMOGLOBIN 26.7 pg (27.0-34.0); MEAN CORPUSCULAR HGB CONC 33.5 g/dL (33.0-35.0); MEAN CORPUSCULAR VOLUME 79.8 fL (80.0-100.0); MEAN PLATELET VOLUME 8.3 fL (7.4-11.0); MONOCYTES # (AUTO) 0.7 x10^3/uL (0.3-0.8); MONOCYTES % (AUTO) 5.4 % (0.0-13.0); NEUTROPHILS # (AUTO) 10.7 x10^3/uL (2.2-4.8); NEUTROPHILS % (AUTO) 79.6 % (42.0-75.0); PLATELET COUNT 156 X10^3/uL (150.0-450.0); RED BLOOD COUNT 3.54 X10^6/uL (3.5-5.4); WHITE BLOOD COUNT 13.4 X10^3/uL (3.6-10.0)
[2021-01-03] MEDS: ZOFRAN INJ 4 MG VIAL IVP PRN ×2 (06:13→10:12)
[2021-01-03 06:28] LABS: ALANINE AMINOTRANSFERASE < 6 Units/L (12-78); ALBUMIN 1.2 g/dL (3.4-5.0); ALKALINE PHOSPHATASE 80 Units/L (46-116); ASPARTATE AMINO TRANSFERASE 21 Units/L (15-37); BLOOD UREA NITROGEN 18 mg/dL (7-18); CALCIUM 7.1 mg/dL (8.5-10.1); CARBON DIOXIDE 27.1 mmol/L (21-32); CHLORIDE 100 mmol/L (98-107); COR CA(FOR HYPOALB) 9.3 mg/dL (8.5-10.1); CREATININE 1.46 mg/dL (0.55-1.02); SODIUM 133 mmol/L (136-145); TOTAL PROTEIN 4.4 g/dL (6.4-8.2); eGFR NON BLACK RACES 37 (>60)
[2021-01-03] MEDS ORDERED: NORVASC TAB 2.5 MG ONE (08:31)
[2021-01-03] MEDS: NYSTATIN POWDER TOP SCH ×2 (10:06→20:41)
[2021-01-03] MEDS: NORVASC TAB 2.5 MG PO SCH (10:06)
[2021-01-03] MEDS: LANTISEPTIC TOP SCH ×2 (10:07→20:41)
[2021-01-03] MEDS: INVANZ INJ 1 GM VIAL 1 GM in NS 100 ML IV + SPIKE MINIBAG* 100 ML IV SCH (10:07)
[2021-01-03] MEDS: NexIUM PO SCH (10:07)
[2021-01-03] MEDS: CORDARONE TAB 200 MG PO SCH (10:08)
[2021-01-03] MEDS: COREG TAB 6.25 MG PO SCH ×2 (10:11→20:40)
--- NOTE | 2021-01-03 10:45 | DR.H&P ---
H&P - History & Physical for Day of: H&P Date: 01/02/21 - Chief Complaint Chief Complaint: "VAGINAL BLEEDING" "DIARRHEA" - History of Present Illness History of Present Illness: PT IS 75 WF ER ADMISSION AFTER PRESENTING WITH FAMILY REPORTING PT HAS had "thick, nasty smelling" vaginal bleeding intermittently x one day per daughter; had hysterectomy years ago and denies injury; she does have a landa present x one month since discharge from [facility] after undergoing heart cath for stent placement Nov 26; something "went wrong" during cath and she has been unable to walk since; she has rt sided arm and leg weakness but denies being told she had a stroke; she drove herself to the hospital so this was an acute event; she's had "soft, mud pie-like" diarrhea since discharge for which pcp started probiotics which have helped a little per the daughter; no abd pain, nausea or vomiting; she is on plavix. PT FAMILY DENIES ANY FEVER OR KNOWN COVID EXPOSURE. PT HAD PMH OF CAD, AFIB, CHF, HTN, HYPERLIPIDEMIA. daughter has picture of thick looking red material on diaper from earlier today - Past Medical History Past Medical History: HI, Hypertension, Dyslipidemia, Renal Disease, Hypothyroidism, Anemia, CHF - Past Surgical History Surgical History: Angioplasty/Stents, Hysterectomy, Joint Replacement, Other - Family History Family Medical History: HI, Hypertension - Social History Does patient currently use any type of tobacco product: No Have you used tobacco products in the last 12 months: No Type of Tobacco Use: None Does any household member use tobacco: No Alcohol Use: None Drug Use: None - Medications Home Medications: No Known Drug Allergies Allergy (Verified 06/01/19 13:01) CONTINUE taking the following medications amiodarone [Pacerone] 100 mg PO DAILY 01/02/21 [History] - Review of Systems Constitutional: Weakness Eyes: No Symptoms Reported ENT: No Symptoms Reported Respiratory: No Symptoms Reported Cardiovascular: No Symptoms Reported Gastrointestinal: Nausea, Diarrhea, Melena Genitourinary: Other (LANDA, REPORTS VAGINAL BLEEDING) Musculoskeletal: No Symptoms Reported Skin: Bruising Neurological: Weakness - Physical Exam Vital Signs: Temperature 98.3 F Pulse Rate [Brachial] 60 Pulse Rate 70 Respiratory Rate 18 Blood Pressure [Right Arm] 112/56 Blood Pressure [Left Arm] 181/80 Blood Pressure [Standing] 168/72 Blood Pressure [Sitting] 188/81 Blood Pressure [Lying] 215/90 Blood Pressure 103/52 O2 Sat by Pulse Oximetry 98 Oriented: Person Eyes: Normal Ear: Normal Nose: Normal Throat: Normal Respiratory: RLL Diminished, LLL Diminished Cardiovascular: Normal : Hematuria Auscultation: Bowel Sounds: Increased Palpation: Normal Tenderness: Diffuse, Mild Skin: Decreased Turgur, Bruising Musculoskeletal: Right, Arm, Leg, Back:Lumbar, Motor Deficit Mood Description: Calm Speech Pattern: Clear, Appropriate - Assessment/Plan (1) Acute GI bleeding Status: Acute Plan: ADMIT, STOOL STUDIES ORDERED ON ADMISSION. IV VANCOMYCIN. BLOOD CULTURES, IV HYDRATION. CARDIAC MONITORING, CT HEAD ON ADMISSION RO CVA. URINE CULTURE. EKG AND CXR. CT ABD PELVIS IN ER REVEALING COLITIS, LANDA CARE. VERIFY HOME MEDICATION, ANEMIA PANEL. (2) Acute right-sided weakness Status: Acute (3) CHF (congestive heart failure) Qualifiers: Heart failure type: combined systolic and diastolic Heart failure chronicity: acute on chronic Qualified Code(s): I50.43 - Acute on chronic combined systolic (congestive) and diastolic (congestive) heart failure Status: Acute (4) A-fib Qualifiers: Atrial fibrillation type: paroxysmal Qualified Code(s): I48.0 - Paroxysmal atrial fibrillation Status: Acute (5) Anemia Status: Acute - Allergies Allergies/Adverse Reactions: Allergies Allergy/AdvReac Type Severity Reaction Status Date / Time No Known Drug Allergies Allergy Verified 06/01/19 13:01
--- NOTE | 2021-01-03 15:46 | RAD ---
HISTORYCAD, AFIBSTUDYCHEST, 1 VIEWCOMPARISONMay 2020TECHNIQUEChest radiographic imaging, AP portable projection, 1 imageFINDINGSNo cardiomegaly.Pacemaker in place.No focal airspace disease.No pleural effusion.No pneumothorax.No acute osseous abnormality.IMPRESSIONNo imaging findings of acute cardiopulmonary disease.Electronically signed by: Jean Paul Becerra (Jan 03, 2021 15:44:33)
[2021-01-03] MEDS: NS 1000 ML 1,000 ML IV SCH (19:19)
[2021-01-03] MEDS: LIPITOR TAB 40 MG PO SCH (20:41)
[2021-01-03] MEDS: SINEquan PO SCH (20:42)
[2021-01-04] MEDS: VANCOMYCIN HCL 250 MG CAP PO SCH ×4 (02:52→20:46)
[2021-01-04] MEDS: FLAGYL TAB 500 MG PO SCH ×3 (05:13→22:00)
[2021-01-04] MEDS: SYNTHROID 112 mcg TAB PO SCH (05:43)
[2021-01-04 06:11] LABS: BASOPHILS # (AUTO) 0.1 X10^3/uL (0.0-0.1); BASOPHILS % (AUTO) 0.7 % (0.2-1.0); EOSINOPHILS # (AUTO) 0.4 x10^3/uL (0.0-0.2); EOSINOPHILS % (AUTO) 3.9 % (0.9-2.9); HEMATOCRIT 26.4 % (36.0-47.0); HEMOGLOBIN 9.1 g/dL (12.0-16.0); LYMPHOCYTES # (AUTO) 1.3 X10^3/uL (1.3-2.9); LYMPHOCYTES % (AUTO) 14.6 % (21.0-51.0); MEAN CORPUSCULAR HEMOGLOBIN 27.4 pg (27.0-34.0); MEAN CORPUSCULAR HGB CONC 34.6 g/dL (33.0-35.0); MEAN CORPUSCULAR VOLUME 78.9 fL (80.0-100.0); MEAN PLATELET VOLUME 8.2 fL (7.4-11.0); MONOCYTES # (AUTO) 0.6 x10^3/uL (0.3-0.8); MONOCYTES % (AUTO) 6.9 % (0.0-13.0); NEUTROPHILS # (AUTO) 6.8 x10^3/uL (2.2-4.8); NEUTROPHILS % (AUTO) 73.9 % (42.0-75.0); PLATELET COUNT 174 X10^3/uL (150.0-450.0); RED BLOOD COUNT 3.34 X10^6/uL (3.5-5.4); RED CELL DISTRIBUTION WIDTH 16.3 % (11.6-16.5); WHITE BLOOD COUNT 9.1 X10^3/uL (3.6-10.0)
[2021-01-04 06:44] LABS: ALANINE AMINOTRANSFERASE < 6 Units/L (12-78); ALBUMIN 1.2 g/dL (3.4-5.0); ALKALINE PHOSPHATASE 74 Units/L (46-116); ASPARTATE AMINO TRANSFERASE 21 Units/L (15-37); BLOOD UREA NITROGEN 17 mg/dL (7-18); CALCIUM 7.2 mg/dL (8.5-10.1); CARBON DIOXIDE 27.4 mmol/L (21-32); CHLORIDE 102 mmol/L (98-107); COR CA(FOR HYPOALB) 9.4 mg/dL (8.5-10.1); CREATININE 1.34 mg/dL (0.55-1.02); SODIUM 135 mmol/L (136-145); TOTAL PROTEIN 4.1 g/dL (6.4-8.2); eGFR NON BLACK RACES 41 (>60)
[2021-01-04 07:17] LABS: BAND NEUTROPHILS % 6 % (0-10)
[2021-01-04 07:18] LABS: PLATELET MORPHOLOGY COMMENT NORMAL (NORMAL)
[2021-01-04 07:19] LABS: OVALOCYTES PRESENT; POIKILOCYTOSIS SLIGHT
[2021-01-04] MEDS ORDERED: NORVASC TAB 2.5 MG ONE (09:09)
[2021-01-04] MEDS: CORDARONE TAB 200 MG PO SCH (10:11)
[2021-01-04] MEDS: NORVASC TAB 2.5 MG PO SCH (10:11)
[2021-01-04] MEDS: NYSTATIN POWDER TOP SCH ×2 (10:16→20:46)
[2021-01-04] MEDS: COREG TAB 6.25 MG PO SCH ×2 (10:16→20:45)
[2021-01-04] MEDS: NexIUM PO SCH (10:16)
[2021-01-04] MEDS: INVANZ INJ 1 GM VIAL 1 GM in NS 100 ML IV + SPIKE MINIBAG* 100 ML IV SCH (10:17)
[2021-01-04] MEDS: LANTISEPTIC TOP SCH ×2 (10:17→20:45)
[2021-01-04] MEDS: NS 1000 ML 1,000 ML IV SCH (20:45)
[2021-01-04] MEDS: LIPITOR TAB 40 MG PO SCH (20:46)
[2021-01-04] MEDS: SINEquan PO SCH (20:46)
[2021-01-05] MEDS: VANCOMYCIN HCL 250 MG CAP PO SCH ×4 (02:11→20:45)
[2021-01-05] MEDS: SYNTHROID 112 mcg TAB PO SCH (05:41)
[2021-01-05] MEDS: FLAGYL TAB 500 MG PO SCH ×3 (05:41→21:47)
[2021-01-05] MEDS ORDERED: NORVASC TAB 2.5 MG ONE (08:44)
[2021-01-05] MEDS: INVANZ INJ 1 GM VIAL 1 GM in NS 100 ML IV + SPIKE MINIBAG* 100 ML IV SCH (08:50)
[2021-01-05] MEDS: COREG TAB 6.25 MG PO SCH ×2 (08:52→20:44)
[2021-01-05] MEDS: NORVASC TAB 2.5 MG PO SCH (08:52)
[2021-01-05] MEDS: CORDARONE TAB 200 MG PO SCH (08:53)
[2021-01-05] MEDS: NexIUM PO SCH (08:58)
[2021-01-05] MEDS: LANTISEPTIC TOP SCH ×2 (08:58→20:45)
[2021-01-05 09:13] LABS: BASOPHILS # (AUTO) 0.1 X10^3/uL (0.0-0.1); BASOPHILS % (AUTO) 0.7 % (0.2-1.0); EOSINOPHILS # (AUTO) 0.3 x10^3/uL (0.0-0.2); EOSINOPHILS % (AUTO) 3.1 % (0.9-2.9); HEMATOCRIT 31.2 % (36.0-47.0); HEMOGLOBIN 10.4 g/dL (12.0-16.0); LYMPHOCYTES # (AUTO) 1.7 X10^3/uL (1.3-2.9); LYMPHOCYTES % (AUTO) 20.5 % (21.0-51.0); MEAN CORPUSCULAR HEMOGLOBIN 26.7 pg (27.0-34.0); MEAN CORPUSCULAR HGB CONC 33.4 g/dL (33.0-35.0); MEAN CORPUSCULAR VOLUME 79.9 fL (80.0-100.0); MEAN PLATELET VOLUME 8.1 fL (7.4-11.0); MONOCYTES # (AUTO) 0.5 x10^3/uL (0.3-0.8); MONOCYTES % (AUTO) 6.1 % (0.0-13.0); NEUTROPHILS # (AUTO) 5.7 x10^3/uL (2.2-4.8); NEUTROPHILS % (AUTO) 69.6 % (42.0-75.0); PLATELET COUNT 248 X10^3/uL (150.0-450.0); RED CELL DISTRIBUTION WIDTH 17.1 % (11.6-16.5); WHITE BLOOD COUNT 8.2 X10^3/uL (3.6-10.0)
[2021-01-05 09:22] LABS: ALANINE AMINOTRANSFERASE 10 Units/L (12-78); ALBUMIN 1.5 g/dL (3.4-5.0); ALKALINE PHOSPHATASE 91 Units/L (46-116); ASPARTATE AMINO TRANSFERASE 24 Units/L (15-37); BLOOD UREA NITROGEN 14 mg/dL (7-18); CALCIUM 7.2 mg/dL (8.5-10.1); CARBON DIOXIDE 30.3 mmol/L (21-32); CHLORIDE 102 mmol/L (98-107); COR CA(FOR HYPOALB) 9.2 mg/dL (8.5-10.1); CREATININE 1.21 mg/dL (0.55-1.02); SODIUM 137 mmol/L (136-145); TOTAL PROTEIN 4.8 g/dL (6.4-8.2); eGFR NON BLACK RACES 46 (>60)
[2021-01-05] MEDS: NYSTATIN POWDER TOP SCH ×2 (09:30→20:45)
[2021-01-05 09:43] LABS: CRENATED RBC SLIGHT; PLATELET MORPHOLOGY COMMENT NORMAL (NORMAL)
[2021-01-05] MEDS ORDERED: NS 50 ML IV 50 ML IV ONE (09:49)
[2021-01-05] MEDS: BACTRIM DS TAB PO SCH ×2 (13:24→20:44)
[2021-01-05] MEDS: ZOFRAN INJ 4 MG VIAL IVP PRN (13:25)
[2021-01-05] MEDS: NS 1000 ML 1,000 ML IV SCH (20:44)
[2021-01-05] MEDS: LIPITOR TAB 40 MG PO SCH (20:45)
[2021-01-05] MEDS: SINEquan PO SCH (21:47)
[2021-01-06] MEDS: VANCOMYCIN HCL 250 MG CAP PO SCH ×2 (02:15→09:17)
[2021-01-06] MEDS: FLAGYL TAB 500 MG PO SCH (05:08)
[2021-01-06] MEDS: SYNTHROID 112 mcg TAB PO SCH (05:36)
[2021-01-06 06:16] LABS: BASOPHILS # (AUTO) 0.1 X10^3/uL (0.0-0.1); BASOPHILS % (AUTO) 1.4 % (0.2-1.0); EOSINOPHILS # (AUTO) 0.3 x10^3/uL (0.0-0.2); EOSINOPHILS % (AUTO) 4.3 % (0.9-2.9); HEMOGLOBIN 8.1 g/dL (12.0-16.0); LYMPHOCYTES % (AUTO) 25.4 % (21.0-51.0); MEAN CORPUSCULAR HGB CONC 33.6 g/dL (33.0-35.0); MEAN CORPUSCULAR VOLUME 80.3 fL (80.0-100.0); MONOCYTES # (AUTO) 0.5 x10^3/uL (0.3-0.8); MONOCYTES % (AUTO) 5.9 % (0.0-13.0); NEUTROPHILS # (AUTO) 5.1 x10^3/uL (2.2-4.8); PLATELET COUNT 228 X10^3/uL (150.0-450.0); RED BLOOD COUNT 2.99 X10^6/uL (3.5-5.4); RED CELL DISTRIBUTION WIDTH 17.1 % (11.6-16.5)
[2021-01-06 06:19] LABS: ALANINE AMINOTRANSFERASE < 6 Units/L (12-78); ALBUMIN 1.2 g/dL (3.4-5.0); ALKALINE PHOSPHATASE 89 Units/L (46-116); ASPARTATE AMINO TRANSFERASE 21 Units/L (15-37); BLOOD UREA NITROGEN 13 mg/dL (7-18); CALCIUM 6.9 mg/dL (8.5-10.1); CARBON DIOXIDE 27.1 mmol/L (21-32); CHLORIDE 104 mmol/L (98-107); COR CA(FOR HYPOALB) 9.1 mg/dL (8.5-10.1); CREATININE 1.22 mg/dL (0.55-1.02); SODIUM 136 mmol/L (136-145); TOTAL PROTEIN 3.9 g/dL (6.4-8.2); eGFR NON BLACK RACES 46 (>60)
[2021-01-06] MEDS ORDERED: NORVASC TAB 2.5 MG ONE (08:39)
[2021-01-06] MEDS ORDERED: PROCRIT or EPOGEN VIAL 10,000 UNITS SC ONE (09:11)
[2021-01-06 09:13] VITALS: BP 108/53
[2021-01-06] MEDS: NORVASC TAB 2.5 MG PO SCH (09:17)
[2021-01-06] MEDS: BACTRIM DS TAB PO SCH (09:17)
[2021-01-06] MEDS: NexIUM PO SCH (09:18)
[2021-01-06] MEDS: NYSTATIN POWDER TOP SCH (09:18)
[2021-01-06] MEDS: LANTISEPTIC TOP SCH (09:18)
[2021-01-06] MEDS: CORDARONE TAB 200 MG PO SCH (09:19)
[2021-01-06] MEDS: COREG TAB 6.25 MG PO SCH (09:25)
[2021-01-07] MEDS ORDERED: SYNTHROID 175 mcg TAB PO SCH (06:30)
== END 2021-01-06 08:32 | disposition swing bed (61) | DRG 372 ==
LOC: ER 12:13 → MED/SURG 15:42
PROVIDERS: ADMIT Obstetrics & Gynecology Obstetrics; ATTEND Obstetrics & Gynecology Obstetrics
DX: I48.91 Unspecified atrial fibrillation; Z74.01 Bed confinement status; E66.01 Morbid (severe) obesity due to excess calories; R62.7 Adult failure to thrive; Z20.822 Contact with and (suspected) exposure to COVID-19; E87.1 Hypo-osmolality and hyponatremia; E86.0 Dehydration; N39.0 Urinary tract infection, site not specified; I50.9 Heart failure, unspecified; R27.8 Other lack of coordination; I10 Essential (primary) hypertension; R26.2 Difficulty in walking, not elsewhere classified; A04.72 Enterocolitis due to Clostridium difficile, not specified as recurrent; B96.89 Other specified bacterial agents as the cause of diseases classified elsewhere; B95.62 Methicillin resistant Staphylococcus aureus infection as the cause of diseases classified elsewhere; R53.1 Weakness; D50.0 Iron deficiency anemia secondary to blood loss (chronic); R10.9 Unspecified abdominal pain; K92.2 Gastrointestinal hemorrhage, unspecified

== ENCOUNTER 2021-01-06 08:32 | Inpatient (IN) ==
[2021-01-06] MEDS ORDERED: PROCRIT or EPOGEN VIAL 10,000 UNITS SC ONE (10:25)
[2021-01-06] MEDS ORDERED: ZOFRAN INJ 4 MG VIAL IVP PRN (10:25)
[2021-01-06] MEDS ORDERED: NORVASC TAB 2.5 MG ONE (10:25)
[2021-01-06 11:11] VITALS: BMI 31.3
[2021-01-06] MEDS: VANCOMYCIN HCL 250 MG CAP PO SCH ×2 (14:57→21:34)
[2021-01-06] MEDS: FLAGYL TAB 500 MG PO SCH ×2 (14:57→21:34)
--- NOTE | 2021-01-06 15:01 | PT/OTEVAL ---
PT/OT OBJECTIVES - HISTORY Prescription: PT Consult Diagnosis: GI Bleed, R Sided Weakness Precautions: Fall Risk, R Sided Weakness, Rectal Tube, Shin Catheter PMH: NV, HTN, Dyslipidemia, Renal Disease, Hypothyroidism, Anemia, CHF, Angioplasty/Stents, R Sided Acute Weakness Prior Level of Function: Independent (Pt reports that prior to hospitalization in early November 2020 for cardiac stent placement she was independent with all mobility tasks within the community without a device. Pt states that she was driving. Pt states that since hospitalization; however, she has been bed bound & dependent.) Other: Currently living with daughter who is part time caregiver (following hospitalization in early November) due to new onset R sided weakness and inability to care for herself. Has been bed bound since discharging to her daughter's home requiring total assist. - COGNITION Mental Status: Alert, Oriented, Name, Date, Place, Purpose Communication Status: Verbal Ability to Follow Directions: 2 Step Memory Loss: None - PAIN Right Shoulder Pain Scale: Discomfort (1-2) Comments: whenever R SH is elevated/flexed - BED MOBILITY Rolling: Maximum, x1 Scooting: Maximum, x2 Bridging: Maximum, x2 - TRANSFERS Supine to Sit: Maximum, x2 Sit to Stand: Maximum, x2 Sit or Stand Pivot: Not Tested Sit or Stand Pivot Comment: Unable to achieve full upright standing posture during sit to stands. Safety (requires cues for:): Hand Placement Precaution Safety Comment: Postural cues. - BALANCE Static Sitting: Fair Standing: Total Assist Dynamic Sitting: Poor Standing: Total Assist - HAND DOMINANCE Extremity Function: Hand Dominance: Right - ROM Bilateral LE ROM: WFL Muscle Tone: WFL - STRENGTH Left Strength Number: 3 Other comment: 2+/5 Right Strength Number: 1 Right LE Strength Number: 2 Other comment: 2- to 2+/5 Left LE Strength Number: 3 Other comment: 3+ - GAIT Comments: Unable to safely ambulate at time of evaluation. PT/OT ASSESSMENT - PT Problem List: Decreased Bed Mobility, Decreased Transfers, Decreased Gait, Decreased Balance, Decreased LE Strength - PT GOALS Short Term Goals Days: 10 Mobility: Pt will perform bed mobility tasks with mod assist x 1 Transfers: Pt will perform functional transfers with mod assist x 1 Gait: Pt will ambulate 5ft with FWW with mod assist x 1. It Architecture Analyst Goals Days: 20 Mobility: Pt will perform bed mobility tasks with CGA. Transfers: Pt will perform functional transfers with CGA. Gait: Pt will ambulate 15ft with FWW and min assist. Balance: Pt will increase standing balance to fair- to decrease risk for falls. ROM/Strength: Pt will increase BLE strength by 1 MMT. - PATIENT GOALS Patient/Family Goals: "I want to be able to move as much as I can by myself" Goals Discussed with Patient/Family: Yes ( also present at time of evaluation.) Rehabilitation Potential: Good to meet stated goals. Justification for Potential: Facilitate highest level of function & safe discharge planning back to PLOF Weakness and Barriers: None - PLAN Suggested Treatment Plan: Bed Mobility Training, Therapeutic Activity, Gait Training, Neuro Re-education, Therapeutic Ex with HEP, Patient Education - FREQUENCY AND DURATION PT: 6x per week x 20 days Expected Continuation of Care at Discharge: Home Health Anticipated Equipment Needs: Pt currently with hospital bed and walker at home. Further equipment TBD.
--- NOTE | 2021-01-06 15:22 | PT/OTEVAL ---
PT/OT OBJECTIVES - HISTORY Prescription: OT consult Diagnosis: anemia, GI bleed, rectal bleed, hyperatremia Precautions: fall,SOB PMH: RI, HTN, dyslipidimia, renal disease, hypothyroidism, anemia, CHF, angioplasty, stent, joint replacement, acute right side weakness Prior Level of Function: Independent Other: Prior to hospitalization, pt lived with daughter in a single level home. Pt reported that daughter assisted in all BADLs and IADLs. Pt uses AE for functional mobility in/out of the house. After having stent on 2020, pt reported of slow decline in function and was sent to [place] for rehab but was unable to fully participate and be OOB d/t severe weakness and c/o nausea. - COGNITION Mental Status: Alert, Oriented, Name, Place, Purpose, Anxious, Decreased Safety Awarenes Communication Status: Verbal Ability to Follow Directions: 3 Step - PAIN Right Shoulder Pain Scale: Discomfort (1-2) Comments: whenever R SH is elevated/flexed - BED MOBILITY Rolling: Maximum, x2 Scooting: Maximum, x2 - TRANSFERS Supine to Sit: Maximum, x2 Sit to Stand: Maximum, x2 Sit to Stand Comment: using FWW - ADL'S Feeding: Setup Grooming: Maximum Upper Body ADL: Maximum Lower Body ADL: N/A Toileting: Dependent Toileting Comment: (+)landa and rectal catheter - BALANCE Static Sitting: Fair Standing: Total Assist Dynamic Sitting: Poor Standing: Total Assist - NEUROMOTOR/SENSATION Chris. Upper Ext Sensation: WFL Coordination: WFL Proprioception: WFL - HAND DOMINANCE Extremity Function: Hand Dominance: Right - ROM Left UE ROM: WFL Muscle Tone: WFL Right UE ROM: Impaired Muscle Tone: WFL Comment: (+)LOM d/t weakness - STRENGTH Left UE Strength Number: 3 Right UE Strength Number: 3 Other comment: 2+/5 Right LE Strength Number: 2 Other comment: 2- to 2+/5 Left LE Strength Number: 3 Other comment: 3+ Left Strength Number: 3 Other comment: 2+/5 Right Strength Number: 1 PT/OT ASSESSMENT - OT Problem List: Decreased Mobility ADL's, Decreased Safety Aware, Decreased Dressing, Decreased Bathing, Decreased Grooming, Decreased UE Strength, Other Other, comment: decreased functional mobility - PT GOALS Short Term Goals Days: 10 Mobility: Pt will perform bed mobility tasks with mod assist x 1 Transfers: Pt will perform functional transfers with mod assist x 1 Gait: Pt will ambulate 5ft with FWW with mod assist x 1. Belt And Link Assembly Supervisor Goals Days: 20 Mobility: Pt will perform bed mobility tasks with CGA. Transfers: Pt will perform functional transfers with CGA. Gait: Pt will ambulate 15ft with FWW and min assist. Balance: Pt will increase standing balance to fair- to decrease risk for falls. ROM/Strength: Pt will increase BLE strength by 1 MMT. - OT GOALS Short Term Goals Days: 10 Mobility for ADL's: Pt will improve toilet t/f independently with AE Safety Awareness: Pt will demonstrate G safety awareness to decrease fall risk Dressing: Pt will perform UB/LB dressing independently with AE as needed. Bathing: Pt will improve bathing skills to independent level Grooming: Pt will improve grooming skills to independent level Upper Ext. Strength/Use: Pt will increase BUE strength to 5/5 to increase ADL,t/f and mobility Other: Pt will improve F.A.T. to G to increase efficiency with ADL Senior Living Goals Days: 20 Mobility for ADL's: Pt will improve toilet t/f independently with AE Safety Awareness: Pt will demonstrate G safety awareness to decrease fall risk Dressing: Pt will perform UB/LB dressing independently with AE as needed. Bathing: Pt will improve bathing skills to independent level Grooming: Pt will improve grooming skills to independent level Upper Ext. Strength/Use: Pt will increase BUE strength to 5/5 to increase ADL,t/f and mobility Other: Pt will improve F.A.T. to G to increase efficiency with ADL - PATIENT GOALS Patient/Family Goals: return to PLOF Goals Discussed with Patient/Family: Yes Rehabilitation Potential: fair to good Justification for Potential: high level of PLOF, G family support, G motivation Weakness and Barriers: Pain If yes, explain: SOB - PLAN Suggested Treatment Plan: Therapeutic Activity, Self Care Training, Neuro Re- education, Therapeutic Ex with HEP, Home Management, Patient Education, Family Education - FREQUENCY AND DURATION OT: 5x a week x hospital stay Expected Continuation of Care at Discharge: Determined on Progress
[2021-01-06] MEDS ORDERED: NS 1000 ML 1,000 ML IV SCH (19:00)
[2021-01-06] MEDS: COREG TAB 6.25 MG PO SCH (21:34)
[2021-01-06] MEDS: NYSTATIN POWDER TOP SCH (21:35)
[2021-01-06] MEDS: SINEquan PO SCH (21:35)
[2021-01-06] MEDS: LIPITOR TAB 40 MG PO SCH (21:36)
[2021-01-06] MEDS: LANTISEPTIC TOP SCH (21:37)
[2021-01-06] MEDS: BACTRIM DS TAB PO SCH (21:37)
[2021-01-07] MEDS: VANCOMYCIN HCL 250 MG CAP PO SCH ×4 (03:10→21:56)
[2021-01-07 05:22] LABS: BASOPHILS # (AUTO) 0.1 X10^3/uL (0.0-0.1); BASOPHILS % (AUTO) 0.9 % (0.2-1.0); EOSINOPHILS # (AUTO) 0.3 x10^3/uL (0.0-0.2); EOSINOPHILS % (AUTO) 4.3 % (0.9-2.9); HEMATOCRIT 24.9 % (36.0-47.0); HEMOGLOBIN 8.5 g/dL (12.0-16.0); LYMPHOCYTES # (AUTO) 1.9 X10^3/uL (1.3-2.9); LYMPHOCYTES % (AUTO) 28.5 % (21.0-51.0); MEAN CORPUSCULAR HGB CONC 34.1 g/dL (33.0-35.0); MEAN CORPUSCULAR VOLUME 79.1 fL (80.0-100.0); MEAN PLATELET VOLUME 7.9 fL (7.4-11.0); MONOCYTES # (AUTO) 0.5 x10^3/uL (0.3-0.8); MONOCYTES % (AUTO) 7.8 % (0.0-13.0); NEUTROPHILS % (AUTO) 58.5 % (42.0-75.0); PLATELET COUNT 262 X10^3/uL (150.0-450.0); RED BLOOD COUNT 3.15 X10^6/uL (3.5-5.4); RED CELL DISTRIBUTION WIDTH 17.2 % (11.6-16.5); WHITE BLOOD COUNT 6.8 X10^3/uL (3.6-10.0)
[2021-01-07 05:31] LABS: ALANINE AMINOTRANSFERASE 6 Units/L (12-78); ALBUMIN 1.3 g/dL (3.4-5.0); ALKALINE PHOSPHATASE 80 Units/L (46-116); ASPARTATE AMINO TRANSFERASE 29 Units/L (15-37); BLOOD UREA NITROGEN 15 mg/dL (7-18); CALCIUM 7.1 mg/dL (8.5-10.1); CARBON DIOXIDE 24.8 mmol/L (21-32); CHLORIDE 104 mmol/L (98-107); COR CA(FOR HYPOALB) 9.3 mg/dL (8.5-10.1); SODIUM 136 mmol/L (136-145); TOTAL PROTEIN 4.1 g/dL (6.4-8.2); eGFR NON BLACK RACES 46 (>60)
[2021-01-07] MEDS: SYNTHROID 175 mcg TAB PO SCH (05:58)
[2021-01-07] MEDS: FLAGYL TAB 500 MG PO SCH ×3 (05:58→21:55)
[2021-01-07 06:07] LABS: PLATELET MORPHOLOGY COMMENT NORMAL (NORMAL)
[2021-01-07 06:08] LABS: POIKILOCYTOSIS 1+; SCHISTOCYTES 1+
[2021-01-07] MEDS ORDERED: SYNTHROID 112 mcg TAB PO SCH (06:30)
[2021-01-07] MEDS ORDERED: MICRO K EXTEN CAP 10 MEQ PO PRN (07:54)
[2021-01-07] MEDS ORDERED: K-DUR TAB 20 MEQ PO PRN (07:54)
[2021-01-07] MEDS ORDERED: POTASSIUM CHLORIDE LIQ 20 MEQ UDC PO PRN (07:54)
[2021-01-07] MEDS ORDERED: KLOR-CON PO PRN (07:54)
[2021-01-07] MEDS ORDERED: NORVASC TAB 2.5 MG ONE (08:12)
[2021-01-07] MEDS: COREG TAB 6.25 MG PO SCH ×2 (08:17→21:56)
[2021-01-07] MEDS: CORDARONE TAB 200 MG PO SCH (08:17)
[2021-01-07] MEDS: NORVASC TAB 2.5 MG PO SCH (08:18)
[2021-01-07] MEDS: LANTISEPTIC TOP SCH ×2 (08:24→21:57)
[2021-01-07] MEDS: NexIUM PO SCH (08:24)
[2021-01-07] MEDS: NYSTATIN POWDER TOP SCH ×2 (08:24→21:56)
[2021-01-07] MEDS: BACTRIM DS TAB PO SCH ×2 (08:24→21:56)
[2021-01-07] MEDS ORDERED: ZOFRAN TAB 4 MG PO PRN (10:01)
[2021-01-07] MEDS: CYTOTEC PO SCH ×3 (14:21→21:55)
[2021-01-07] MEDS: LIPITOR TAB 40 MG PO SCH (21:55)
[2021-01-07] MEDS: SINEquan PO SCH (22:10)
[2021-01-08] MEDS: VANCOMYCIN HCL 250 MG CAP PO SCH ×4 (02:21→20:27)
[2021-01-08] MEDS: FLAGYL TAB 500 MG PO SCH ×3 (06:32→22:30)
[2021-01-08] MEDS: SYNTHROID 175 mcg TAB PO SCH (06:35)
[2021-01-08] MEDS ORDERED: NORVASC TAB 2.5 MG ONE (09:06)
[2021-01-08] MEDS: BACTRIM DS TAB PO SCH ×2 (09:27→20:25)
[2021-01-08] MEDS: NORVASC TAB 2.5 MG PO SCH (09:28)
[2021-01-08] MEDS: CYTOTEC PO SCH ×4 (09:28→20:28)
[2021-01-08] MEDS: NYSTATIN POWDER TOP SCH ×2 (09:28→20:28)
[2021-01-08] MEDS: CORDARONE TAB 200 MG PO SCH (09:28)
[2021-01-08] MEDS: LANTISEPTIC TOP SCH ×2 (09:28→20:28)
[2021-01-08] MEDS: COREG TAB 6.25 MG PO SCH ×2 (09:28→20:26)
[2021-01-08] MEDS: NexIUM PO SCH (09:29)
[2021-01-08 11:32] LABS: OVALOCYTES 1+
[2021-01-08 18:18] LABS: CRYPTOSPORIDIUM PARVUM ANTIGEN NEGATIVE (NEGATIVE); GIARDIA LAMBLIA ANTIGEN NEGATIVE (NEGATIVE)
[2021-01-08] MEDS: SINEquan PO SCH (20:26)
[2021-01-08] MEDS: LIPITOR TAB 40 MG PO SCH (20:26)
[2021-01-08] MEDS: MELATONIN PO SCH (20:26)
[2021-01-09] MEDS: FLAGYL TAB 500 MG PO SCH ×3 (06:16→22:10)
[2021-01-09] MEDS: SYNTHROID 175 mcg TAB PO SCH (06:16)
[2021-01-09] MEDS ORDERED: NORVASC TAB 2.5 MG ONE (08:53)
[2021-01-09] MEDS: NYSTATIN POWDER TOP SCH ×2 (09:02→20:27)
[2021-01-09] MEDS: CORDARONE TAB 200 MG PO SCH (09:02)
[2021-01-09] MEDS: BACTRIM DS TAB PO SCH ×2 (09:02→20:25)
[2021-01-09] MEDS: LANTISEPTIC TOP SCH ×2 (09:04→20:27)
[2021-01-09] MEDS: COREG TAB 6.25 MG PO SCH ×2 (09:04→20:28)
[2021-01-09] MEDS: NORVASC TAB 2.5 MG PO SCH (09:04)
[2021-01-09] MEDS: NexIUM PO SCH (09:04)
[2021-01-09] MEDS: CYTOTEC PO SCH ×4 (09:04→20:27)
[2021-01-09 14:25] LABS: BILIRUBIN,URINE NEGATIVE (NEGATIVE); BLOOD/HEMOGLOBIN,URINE 2+ (NEGATIVE); GLUCOSE, URINE NEGATIVE (NEGATIVE); KETONES,URINE NEGATIVE (NEGATIVE); LEUKOCYTE ESTERASE ,URINE 2+ (NEGATIVE); NITRITES,URINE POSITIVE (NEGATIVE); PROTEIN,URINE 2+ (NEGATIVE); UROBILINOGEN,URINE NORMAL (NORMAL)
[2021-01-09 14:29] LABS: APPEARANCE,URINE HAZY (CLEAR); COLOR,URINE AMBER (YELLOW)
[2021-01-09 14:33] LABS: AMORPHOUS SEDIMENT,UR 1+ /HPF (NEGATIVE); BACTERIA,URINE TRACE /HPF (NEGATIVE); CALCIUM OXALATE CRYSTALS,UR MODERATE /HPF (NEGATIVE); SQUAMOUS EPITHELIAL CELL,UR RARE /HPF (NEGATIVE); YEAST,URINE MODERATE /HPF (NEGATIVE)
[2021-01-09] MEDS: MELATONIN PO SCH (20:25)
[2021-01-09] MEDS: SINEquan PO SCH (20:26)
[2021-01-09] MEDS: LIPITOR TAB 40 MG PO SCH (20:26)
[2021-01-10] MEDS: FLAGYL TAB 500 MG PO SCH ×3 (05:16→22:04)
[2021-01-10] MEDS: SYNTHROID 175 mcg TAB PO SCH (06:05)
[2021-01-10] MEDS ORDERED: NORVASC TAB 2.5 MG ONE (08:04)
[2021-01-10] MEDS: BACTRIM DS TAB PO SCH ×2 (08:11→22:03)
[2021-01-10] MEDS: COREG TAB 6.25 MG PO SCH ×2 (08:12→22:03)
[2021-01-10] MEDS: CORDARONE TAB 200 MG PO SCH (08:12)
[2021-01-10] MEDS: NexIUM PO SCH (08:12)
[2021-01-10] MEDS: CYTOTEC PO SCH ×4 (08:12→22:03)
[2021-01-10] MEDS: LANTISEPTIC TOP SCH ×2 (08:12→22:03)
[2021-01-10] MEDS: NYSTATIN POWDER TOP SCH ×2 (08:13→22:04)
[2021-01-10] MEDS: NORVASC TAB 2.5 MG PO SCH (08:13)
[2021-01-10] MEDS: MELATONIN PO SCH (22:04)
[2021-01-10] MEDS: LIPITOR TAB 40 MG PO SCH (22:04)
[2021-01-10] MEDS: SINEquan PO SCH (22:04)
[2021-01-11] MEDS: FLAGYL TAB 500 MG PO SCH ×3 (05:22→21:25)
[2021-01-11] MEDS: SYNTHROID 175 mcg TAB PO SCH (05:34)
[2021-01-11] MEDS ORDERED: NORVASC TAB 2.5 MG ONE (07:59)
[2021-01-11] MEDS: CYTOTEC PO SCH ×4 (08:43→21:24)
[2021-01-11] MEDS: NexIUM PO SCH (08:44)
[2021-01-11] MEDS: CORDARONE TAB 200 MG PO SCH (08:45)
[2021-01-11] MEDS: BACTRIM DS TAB PO SCH ×2 (08:45→21:24)
[2021-01-11] MEDS: COREG TAB 6.25 MG PO SCH ×2 (08:46→21:24)
[2021-01-11] MEDS: NORVASC TAB 2.5 MG PO SCH (08:46)
[2021-01-11] MEDS: NYSTATIN POWDER TOP SCH ×2 (08:49→21:25)
[2021-01-11] MEDS: LANTISEPTIC TOP SCH ×2 (08:50→21:24)
[2021-01-11 09:55] LABS: ALANINE AMINOTRANSFERASE 8 Units/L (12-78); ALBUMIN 1.7 g/dL (3.4-5.0); ALKALINE PHOSPHATASE 88 Units/L (46-116); ASPARTATE AMINO TRANSFERASE 32 Units/L (15-37); BLOOD UREA NITROGEN 14 mg/dL (7-18); CALCIUM 7.4 mg/dL (8.5-10.1); CARBON DIOXIDE 21.9 mmol/L (21-32); CHLORIDE 104 mmol/L (98-107); COR CA(FOR HYPOALB) 9.2 mg/dL (8.5-10.1); CREATININE 1.32 mg/dL (0.55-1.02); SODIUM 133 mmol/L (136-145); TOTAL PROTEIN 4.7 g/dL (6.4-8.2); eGFR NON BLACK RACES 42 (>60)
[2021-01-11 10:00] LABS: BASOPHILS # (AUTO) 0.1 X10^3/uL (0.0-0.1); BASOPHILS % (AUTO) 1.3 % (0.2-1.0); EOSINOPHILS # (AUTO) 0.3 x10^3/uL (0.0-0.2); EOSINOPHILS % (AUTO) 4.8 % (0.9-2.9); HEMATOCRIT 26.4 % (36.0-47.0); HEMOGLOBIN 8.8 g/dL (12.0-16.0); LYMPHOCYTES # (AUTO) 3.3 X10^3/uL (1.3-2.9); LYMPHOCYTES % (AUTO) 54.2 % (21.0-51.0); MEAN CORPUSCULAR HEMOGLOBIN 26.9 pg (27.0-34.0); MEAN CORPUSCULAR HGB CONC 33.5 g/dL (33.0-35.0); MEAN CORPUSCULAR VOLUME 80.5 fL (80.0-100.0); MEAN PLATELET VOLUME 7.5 fL (7.4-11.0); MONOCYTES # (AUTO) 0.5 x10^3/uL (0.3-0.8); NEUTROPHILS # (AUTO) 1.9 x10^3/uL (2.2-4.8); NEUTROPHILS % (AUTO) 31.7 % (42.0-75.0); PLATELET COUNT 295 X10^3/uL (150.0-450.0); RED BLOOD COUNT 3.28 X10^6/uL (3.5-5.4); RED CELL DISTRIBUTION WIDTH 18.4 % (11.6-16.5); WHITE BLOOD COUNT 6.1 X10^3/uL (3.6-10.0)
[2021-01-11] MEDS: ZOFRAN TAB 4 MG PO PRN (10:28)
[2021-01-11 11:02] LABS: CRENATED RBC 1+; PLATELET MORPHOLOGY COMMENT NORMAL (NORMAL)
[2021-01-11] MEDS: DIFLUCAN PO SCH (13:00)
[2021-01-11] MEDS: MELATONIN PO SCH (21:24)
[2021-01-11] MEDS: LIPITOR TAB 40 MG PO SCH (21:24)
[2021-01-11] MEDS: SINEquan PO SCH (21:25)
[2021-01-12] MEDS: SYNTHROID 175 mcg TAB PO SCH (05:36)
[2021-01-12] MEDS: FLAGYL TAB 500 MG PO SCH ×3 (05:36→21:45)
[2021-01-12] MEDS ORDERED: NORVASC TAB 2.5 MG ONE (07:26)
[2021-01-12] MEDS: NYSTATIN POWDER TOP SCH ×2 (09:00→21:45)
[2021-01-12] MEDS: LANTISEPTIC TOP SCH ×2 (09:00→21:45)
[2021-01-12] MEDS: ZOFRAN TAB 4 MG PO PRN (09:33)
[2021-01-12] MEDS: CYTOTEC PO SCH ×4 (10:00→21:45)
[2021-01-12] MEDS: DIFLUCAN PO SCH (10:00)
[2021-01-12] MEDS: NexIUM PO SCH (10:30)
[2021-01-12] MEDS: BACTRIM DS TAB PO SCH ×2 (10:30→21:45)
[2021-01-12] MEDS: NORVASC TAB 2.5 MG PO SCH (10:31)
[2021-01-12] MEDS: COREG TAB 6.25 MG PO SCH ×2 (10:31→21:45)
[2021-01-12] MEDS: CORDARONE TAB 200 MG PO SCH (10:32)
--- NOTE | 2021-01-12 10:58 | VAS ---
HISTORYPAIN AND EDEMA LT LEGSTUDYLOWER EXT VENOUS, UNILATERALCOMPARISONNoneTECHNIQUEMultipl e muñoz scale and color flow Doppler images of the deep venous system were obtained of the left lower extremity.FINDINGSThe deep venous system of the left lower extremity was evaluated from the level of the common femoral vein through the popliteal vein. Normal color flow and augmentation can be observed. In addition, normal compression is seen throughout the deep venous system.IMPRESSIONNegative for DVT.Electronically signed by: MARGRET BOOKER (Jan 12, 2021 10:55:58)
[2021-01-12] MEDS: LIPITOR TAB 40 MG PO SCH (21:45)
[2021-01-12] MEDS: MELATONIN PO SCH (21:45)
[2021-01-12] MEDS: SINEquan PO SCH (22:27)
[2021-01-13] MEDS: FLAGYL TAB 500 MG PO SCH ×3 (05:48→21:40)
[2021-01-13] MEDS: SYNTHROID 175 mcg TAB PO SCH (05:50)
[2021-01-13] MEDS ORDERED: NORVASC TAB 2.5 MG ONE (09:24)
[2021-01-13] MEDS: CYTOTEC PO SCH ×4 (09:53→20:34)
[2021-01-13] MEDS: CORDARONE TAB 200 MG PO SCH (09:54)
[2021-01-13] MEDS: NexIUM PO SCH (09:54)
[2021-01-13] MEDS: DIFLUCAN PO SCH (09:55)
[2021-01-13] MEDS: BACTRIM DS TAB PO SCH ×2 (09:55→20:34)
[2021-01-13] MEDS: COREG TAB 6.25 MG PO SCH ×2 (09:56→20:34)
[2021-01-13] MEDS: NORVASC TAB 2.5 MG PO SCH (09:56)
[2021-01-13] MEDS: NYSTATIN POWDER TOP SCH ×2 (09:57→20:34)
[2021-01-13] MEDS: LANTISEPTIC TOP SCH ×2 (09:57→20:34)
[2021-01-13] MEDS: LIPITOR TAB 40 MG PO SCH (20:34)
[2021-01-13] MEDS: MELATONIN PO SCH (20:34)
[2021-01-13] MEDS: SINEquan PO SCH (20:35)
[2021-01-14] MEDS: SYNTHROID 175 mcg TAB PO SCH (05:52)
[2021-01-14] MEDS: FLAGYL TAB 500 MG PO SCH ×3 (05:52→21:07)
[2021-01-14] MEDS ORDERED: NORVASC TAB 2.5 MG ONE (08:58)
[2021-01-14] MEDS: BACTRIM DS TAB PO SCH ×2 (09:00→21:06)
[2021-01-14] MEDS: DIFLUCAN PO SCH (09:00)
[2021-01-14] MEDS: COREG TAB 6.25 MG PO SCH ×2 (09:00→21:06)
[2021-01-14] MEDS: ZOFRAN TAB 4 MG PO PRN ×2 (09:01→19:23)
[2021-01-14] MEDS: NexIUM PO SCH (09:01)
[2021-01-14] MEDS: CYTOTEC PO SCH ×4 (09:01→21:07)
[2021-01-14] MEDS: NORVASC TAB 2.5 MG PO SCH (09:01)
[2021-01-14] MEDS: LANTISEPTIC TOP SCH ×2 (09:04→21:07)
[2021-01-14] MEDS: NYSTATIN POWDER TOP SCH ×2 (09:04→21:07)
[2021-01-14] MEDS: CORDARONE TAB 200 MG PO SCH (09:27)
[2021-01-14] MEDS: LIPITOR TAB 40 MG PO SCH (21:07)
[2021-01-14] MEDS: SINEquan PO SCH (21:07)
[2021-01-14] MEDS: MELATONIN PO SCH (21:07)
[2021-01-15] MEDS: SYNTHROID 175 mcg TAB PO SCH (06:11)
[2021-01-15] MEDS: FLAGYL TAB 500 MG PO SCH ×3 (06:11→21:17)
[2021-01-15] MEDS ORDERED: NORVASC TAB 2.5 MG ONE (08:56)
[2021-01-15] MEDS: CYTOTEC PO SCH ×4 (09:47→21:19)
[2021-01-15] MEDS: NexIUM PO SCH (09:48)
[2021-01-15] MEDS: BACTRIM DS TAB PO SCH ×2 (09:48→21:16)
[2021-01-15] MEDS: COREG TAB 6.25 MG PO SCH ×2 (09:49→21:18)
[2021-01-15] MEDS: CORDARONE TAB 200 MG PO SCH (09:49)
[2021-01-15] MEDS: NORVASC TAB 2.5 MG PO SCH (09:49)
[2021-01-15] MEDS: DIFLUCAN PO SCH (09:49)
[2021-01-15] MEDS: NYSTATIN POWDER TOP SCH ×2 (09:50→21:18)
[2021-01-15] MEDS: LANTISEPTIC TOP SCH ×2 (09:50→21:18)
[2021-01-15] MEDS: SINEquan PO SCH (21:17)
[2021-01-15] MEDS: LIPITOR TAB 40 MG PO SCH (21:17)
[2021-01-15] MEDS: MELATONIN PO SCH (21:17)
[2021-01-16] MEDS: ZOFRAN TAB 4 MG PO PRN (03:47)
[2021-01-16] MEDS: FLAGYL TAB 500 MG PO SCH ×3 (05:49→23:00)
[2021-01-16] MEDS: SYNTHROID 175 mcg TAB PO SCH (05:50)
[2021-01-16] MEDS: LANTISEPTIC TOP SCH ×2 (08:58→20:49)
[2021-01-16] MEDS ORDERED: NORVASC TAB 2.5 MG ONE (09:13)
[2021-01-16] MEDS: CORDARONE TAB 200 MG PO SCH (09:31)
[2021-01-16] MEDS: BACTRIM DS TAB PO SCH ×2 (09:31→20:47)
[2021-01-16] MEDS: CYTOTEC PO SCH ×4 (09:32→20:46)
[2021-01-16] MEDS: NORVASC TAB 2.5 MG PO SCH (09:32)
[2021-01-16] MEDS: COREG TAB 6.25 MG PO SCH ×2 (09:32→20:46)
[2021-01-16] MEDS: NYSTATIN POWDER TOP SCH ×2 (09:32→20:49)
[2021-01-16] MEDS: NexIUM PO SCH (09:32)
[2021-01-16] MEDS: DIFLUCAN PO SCH (09:32)
[2021-01-16] MEDS: LIPITOR TAB 40 MG PO SCH (20:46)
[2021-01-16] MEDS: SINEquan PO SCH (20:47)
[2021-01-16] MEDS: MELATONIN PO SCH (20:47)
[2021-01-17] MEDS: FLAGYL TAB 500 MG PO SCH ×3 (06:10→21:30)
[2021-01-17] MEDS: SYNTHROID 175 mcg TAB PO SCH (06:10)
[2021-01-17] MEDS ORDERED: NORVASC TAB 2.5 MG ONE (08:44)
[2021-01-17] MEDS: BACTRIM DS TAB PO SCH ×2 (08:45→20:55)
[2021-01-17] MEDS: COREG TAB 6.25 MG PO SCH ×2 (08:46→20:55)
[2021-01-17] MEDS: CORDARONE TAB 200 MG PO SCH (08:46)
[2021-01-17] MEDS: NexIUM PO SCH (08:47)
[2021-01-17] MEDS: CYTOTEC PO SCH ×4 (08:47→20:54)
[2021-01-17] MEDS: DIFLUCAN PO SCH (08:47)
[2021-01-17] MEDS: LANTISEPTIC TOP SCH ×2 (08:47→20:57)
[2021-01-17] MEDS: NYSTATIN POWDER TOP SCH ×2 (08:48→20:57)
[2021-01-17] MEDS: NORVASC TAB 2.5 MG PO SCH (08:48)
[2021-01-17] MEDS: ZOFRAN TAB 4 MG PO PRN (09:43)
[2021-01-17] MEDS: SINEquan PO SCH (20:55)
[2021-01-17] MEDS: MELATONIN PO SCH (20:55)
[2021-01-17] MEDS: LIPITOR TAB 40 MG PO SCH (20:56)
[2021-01-18] MEDS: SYNTHROID 175 mcg TAB PO SCH (05:43)
[2021-01-18] MEDS: FLAGYL TAB 500 MG PO SCH (05:45)
[2021-01-18 08:17] VITALS: BP 127/60
[2021-01-18] MEDS ORDERED: NORVASC TAB 2.5 MG ONE (08:33)
[2021-01-18] MEDS: BACTRIM DS TAB PO SCH (08:39)
[2021-01-18] MEDS: NORVASC TAB 2.5 MG PO SCH (08:40)
[2021-01-18] MEDS: COREG TAB 6.25 MG PO SCH (08:40)
[2021-01-18] MEDS: CORDARONE TAB 200 MG PO SCH (08:40)
[2021-01-18] MEDS: NexIUM PO SCH (08:41)
[2021-01-18] MEDS: LANTISEPTIC TOP SCH (08:41)
[2021-01-18] MEDS: DIFLUCAN PO SCH (08:41)
[2021-01-18] MEDS: CYTOTEC PO SCH (08:41)
[2021-01-18] MEDS: NYSTATIN POWDER TOP SCH (08:42)
[2021-01-18] MEDS: ZOFRAN TAB 4 MG PO PRN (08:42)
[2021-01-18] MEDS ORDERED: PROCRIT or EPOGEN VIAL 10,000 UNITS SC ONE (10:22)
== END 2021-01-18 14:49 | disposition home health service (06) | DRG 948 ==
LOC: MED/SURG 08:32
PROVIDERS: ADMIT Obstetrics & Gynecology Obstetrics; ATTEND Obstetrics & Gynecology Obstetrics
DX: I48.0 Paroxysmal atrial fibrillation; A04.72 Enterocolitis due to Clostridium difficile, not specified as recurrent; R53.1 Weakness; R26.89 Other abnormalities of gait and mobility; N39.0 Urinary tract infection, site not specified; I10 Essential (primary) hypertension; R60.0 Localized edema; Z51.89 Encounter for other specified aftercare; E86.0 Dehydration; R26.2 Difficulty in walking, not elsewhere classified; D50.0 Iron deficiency anemia secondary to blood loss (chronic); B95.62 Methicillin resistant Staphylococcus aureus infection as the cause of diseases classified elsewhere; R27.8 Other lack of coordination; K92.2 Gastrointestinal hemorrhage, unspecified; I50.9 Heart failure, unspecified; R10.84 Generalized abdominal pain; M79.662 Pain in left lower leg; E87.1 Hypo-osmolality and hyponatremia; R62.7 Adult failure to thrive; B96.89 Other specified bacterial agents as the cause of diseases classified elsewhere